=== PATIENT | female | born 1945 | race Caucasian/White ===

== ENCOUNTER 2023-01-06 09:20 | Inpatient (IN) | payer OTHER, SELFPAY ==
[2023-01-06] VITALS (20 sets, daily range): BP systolic 100–156; BP diastolic 50–80; PULSE 84–114; RESP 16–20; TEMP 36.4–39.1; O2SAT 92–96; BMI 32.6
--- NOTE | ~2023-01-06 | CT_ITS ---
EXAMINATION: CT HEAD WITHOUT CONTRAST (STROKE PROTOCOL) CLINICAL INFORMATION: Stroke protocol. Slurred speech. Right facial droop. Altered mental status. COMPARISON: CT head dated 02/28/2012. TECHNIQUE: Contiguous axial imaging was performed from the skull base to vertex without intravenous administration of contrast. This CT examination was performed using dose optimization techniques as appropriate, variously including the following: *Automated exposure control *Adjustment of mA and/or kV according to patient size (this includes techniques or standardized protocols for targeted exams where dose is matched to indication/reason for exam; i.e. extremities or head) *Use of iterative reconstruction technique DLP: 739.80 mGy-cm FINDINGS: There is no evidence of acute intracranial hemorrhage or territorial infarction. No abnormal mass-effect or midline shift is seen. Hurt to white matter differentiation is well preserved. No extra-axial fluid collections are identified. The ventricles and sulci are commensurately enlarged, similar to the previous exam. There is prominent periventricular and deep white matter low-attenuation seen, consistent with ischemic small vessel disease. The osseous structures and soft tissues are normal. There is partial opacification of both maxillary sinuses and partial density in the left frontal sinus and some of the left ethmoid air cells, consistent with chronic sinusitis. The mastoid air cells and visualized portions of the remainder of the paranasal sinuses are well-aerated. CT/CT head for stroke IMPRESSION: * No acute intracranial pathology. * Prominent findings of ischemic small vessel disease. * Chronic sinus disease. This critical result was discussed with Dr. Enoc Spann 01/06/2023, 9 3:00 PM. It was ascertained that the content and urgency of the report was understood at the time of direct communication.
--- NOTE | ~2023-01-06 | XR_ITS ---
EXAMINATION: XR CHEST CLINICAL INFORMATION: Reason for Exam Altered mental status rule out pneumonia COMPARISON: Chest radiograph 08/15/2015 TECHNIQUE: One view of the chest FINDINGS: Lines and tubes: EKG leads overlie the patient. Right basilar opacities which may reflect infection or aspiration. No pleural effusion. No pneumothorax. Atherosclerosis of the thoracic aorta. Normal cardiac silhouette. Advanced degenerative changes of the left shoulder. XR/XR chest 1V IMPRESSION: 1. Right basilar opacities which may reflect infection or aspiration. 2. Advanced degenerative changes of the left shoulder.
--- NOTE | 2023-01-06 09:25 | ECG_ITS ---
Test Reason : STROKE Blood Pressure : / mmHG Vent. Rate : 098 BPM Atrial Rate : 098 BPM P-R Int : 166 ms QRS Dur : 080 ms QT Int : 342 ms P-R-T Axes : 046 009 032 degrees QTc Int : 436 ms Normal sinus rhythm Normal ECG When compared with ECG of 28-FEB-2012 20:27, Premature ventricular complexes are no longer Present Heart rate has increased Referred By: Darío Spann Electronically Signed By:BRENDAN REDDY MD
--- NOTE | 2023-01-06 09:28 | ED_ITS ---
HPI - Neuro Symptoms/Deficit General Chief Complaint: Stroke Stated Complaint: STROKE SYMPTOMS R SIDED WEAKNESS FACIAL DROOP Time Seen by Provider: 01/06/23 09:25 Source: EMS Mode of arrival: EMS Limitations: altered mental status History of Present Illness HPI Narrative: 78-year-old female with a history of dementia brought to emergency department by ambulance for evaluation of possible stroke. Information came from the paramedics. The patient's last well-known time was 19:30 hours when she went to bed. This morning when she woke up the family noted that she had slurred speech, right facial droop and appeared to be weak and was unable to sit up. Technology Recruiter vital signs: Blood pressure 124/79, heart rate 114, point of care glucose 120. I evaluated the patient on the inspector paper products stretcher. Patient was nonverbal but she did follow simple commands. She was able to close her eyes, cranial nerves appear to be intact, she was able to move all extremities symmetrically. Patient was transferred to a bed and sent directly to CT scan for CT scan of the brain. Related Data Allergies Allergy/AdvReac Type Severity Reaction Status Date / Time codeine [Codeine] Allergy Mild SEVERE Verified 01/06/23 09:41 VOMITING codeine Allergy Unknown rash Uncoded 01/06/23 09:41 Review of Systems 2 Review of Systems: Yes Unobtainable due to mental status PMFSH Social History Social History Advance Directives: No Advance Directives Information Provided: No Physical Exam 2 Vital Signs: Vital Signs: Last Vital Signs Temp 102.0 F H 01/06/23 10:25 Pulse 97 01/06/23 10:25 Resp 20 01/06/23 10:25 BP 144/78 H 01/06/23 10:25 Pulse Ox 96 01/06/23 10:25 O2 Del Method Room Air 01/06/23 10:25 BMI result Body Mass Index 32.6 Exam: General: Awake, nonverbal, follow simple commands, does not appear to be in distress Head: Normocephalic, atraumatic EENT: PERRL, Lids normal, right sclera is injected, no discharge noted, conjunctiva normal, nose normal , ears normal, throat without erythema or exudates Neck: Supple, no adenopathy, no trachea midline or C-spine tenderness Lung: breath sounds symmetric, no wheezing, rales or rhonchi Chest: symmetric movement, nontender Heart: regular rate and rhythm, normal S1, S2 no murmurs or rubs Abdomen: soft, non-tender, nondistended, normal bowel sounds Back: no vertebral tenderness, no CVAT Extremities: no deformities, moves all extremities symmetrically Neuro: Awake, nonverbal, follows simple commands cranial nerves intact, moves all extremities symmetrically Psych: cooperative Medications Administered Generic Name Dose Route Start Last Admin Trade Name Freq PRN Reason Stop Dose Admin Azithromycin 500 mg/ Sodium 250 mls @ 125 mls/hr 01/06/23 11:20 01/06/23 11:49 Chloride IV 01/06/23 13:19 125 mls/hr ONCE ONE Administration Discontinued Medications Generic Name Dose Route Start Last Admin Trade Name Freq PRN Reason Stop Dose Admin Ceftriaxone Sodium 1 gm/ 50 mls @ 100 mls/hr 01/06/23 09:39 01/06/23 10:51 Sodium Chloride IV 01/06/23 10:08 Infused ONCE ONE Infusion Sodium Chloride 1,779 mls @ 1,779 mls/hr 01/06/23 09:45 01/06/23 10:05 Ns IV 01/06/23 10:44 1,779 mls/hr .Q1H STA Administration Medical Decision Making Medical Decision Making MDM Narrative: 78-year-old female with history of dementia whose last well-known time was 19:30 hours when she went to bed last night who was brought to emergency department by ambulance for possible stroke alert. Family reported to the paramedics that the patient had a right facial droop, right-sided weakness and was unable to sit up. At the time of my evaluation patient does not have a perceivable facial droop, her strength seems to be symmetric. She was nonverbal but did follow simple commands. Right sclera injected but no obvious discharge. Following evaluation was ordered by me: CBC, BMP, liver panel, troponin, CK, PT/INR, PTT, magnesium, lactic acid, blood cultures x2, urinalysis obtained by straight cath 09:46 Patient was noted to have a rectal temperature of 102.4. I ordered rectal Tylenol, Redd catheter placement, 30 cc/kilogram fluid bolus , given her obesity and BMI of 32.6 ideal body weight was used to calculate the bolus. CT head without IV contrast was interpreted as no acute findings by the radiologist, radiologist compared a CT scan done 2012, microvascular changes are chronic. Differential Diagnosis Differential Diagnoses: The differential diagnosis associated with the presentation includes Differential diagnosis includes was not limited to stroke, intracranial bleed, pneumonia, urinary tract infection , electrolyte abnormality, anemia Admission/Observation Consideration of admission/observation: Escalation of care including admission/observation considered Lab Data 01/06/23 09:52 01/06/23 09:52 Labs: Lab Results 01/06/23 01/06/23 01/06/23 Range/Units 09:26 09:52 10:01 WBC 3.0 L (4.8-10.8) X10*3/uL RBC 4.48 (4.20-5.50) X10*6/uL Hgb 12.2 (12.0-16.0) g/dl Hct 38.0 (37.0-47.0) % MCV 84.8 (80.0-98.0) fL MCH 27.2 (27.0-33.0) pg MCHC 32.1 (31.0-35.0) g/dl RDW 17.8 H (11.0-16.0) % Plt Count 79 L (160-400) X10*3/uL MPV 9.2 L (9.4-12.3) fL Immature Gran % (Auto) 0.3 (0.0-0.4) % Neut % (Auto) 70.3 (45-73) % Lymph % (Auto) 16.2 L (20-40) % [place] % (Auto) 12.2 H (2-11) % Eos % (Auto) 0.7 (0-4) % Baso % (Auto) 0.3 (0-2) % Lymph # (Auto) 0.5 L (1.2-4.9) X10*3/uL [place] # (Auto) 0.4 (0.1-1.2) X10*3/uL Eos # (Auto) 0.0 (0.0-0.4) X10*3/uL Baso # (Auto) 0.0 (0.0-0.2) X10*3/uL Abs Immat Gran (auto) 0.01 (0.00-0.03) X10*3/uL Absolute Neuts (auto) 2.1 (2.0-8.3) x10*3/uL Absolute Nucleated RBC 0.000 (0.0-0.012) X10*3/uL Nucleated RBC % (auto) 0.0 (0.0-0.2) /100WBC PT 16.1 H (11.1-13.3) SEC INR 1.3 H (0.9-1.1) APTT 36.6 H (26.0-36.4) SEC Sodium 132 L (135-145) mmol/L Potassium 4.3 (3.3-5.1) mmol/L Chloride 101 (96-108) mmol/L Carbon Dioxide 22 (22-29) mmol/L Anion Gap 13 (12-20) BUN 12 (9-16) mg/dL Creatinine 0.69 (0.5-1.4) mg/dL Estim Creat Clear Calc 77.8 Estimated GFR > 60 POC Glucose 107 (60-115) mg/dL Random Glucose 109 (60-115) mg/dL Lactic Acid 1.5 (0.5-2.0) mmol/L Calcium 9.1 (8.4-10.2) mg/dL Magnesium 1.9 (1.6-2.6) mg/dL Total Bilirubin 1.0 (0.0-1.0) mg/dL Direct Bilirubin 0.3 (0.0-0.5) mg/dL AST 86 H (5-31) U/L ALT 52 H (0-31) U/L Alkaline Phosphatase 253 H (39-117) U/L Total Creatine Kinase 55 (26-140) U/L Troponin I High Sens 17.0 (<3.5-17.0) ng/L Total Protein 7.0 (6.5-8.0) g/dL Albumin 3.5 (3.5-5.0) g/dL Urine Color Yellow Urine Appearance Cloudy Urine pH 8.5 (5.0-9.0) Ur Specific [place] 1.020 (1.005-1.025) Urine Protein Trace (Neg-Trace) mg/dL Urine Glucose (UA) Negative (Negative) mg/dL Urine Ketones Negative (Negative) mg/dL Urine Blood Negative (Negative) Urine Nitrite Positive H (Negative) Ur Leukocyte Esterase Trace H (Negative) Urine RBC 0-2 (0-2) /HPF Urine WBC 6-10 H (0-5) /HPF Ur Squamous Epith Cells 0-2 (0-2) /HPF Urine Bacteria 4+ (None Seen) Hyaline Casts 0-2 (0-2) /LPF Influenza Type A (PCR) NEGATIVE (Negative) Influenza Type B (PCR) NEGATIVE (Negative) RSV RNA Qual (PCR) NEGATIVE (Negative) SARS-CoV-2 RNA (RT-PCR) POSITIVE A (Negative) Radiology Impression Discussion of test interpretation with radiology: I have reviewed the radiologist's reading. Radiologist Impression: CT head for stroke IMPRESSION: * No acute intracranial pathology. * Prominent findings of ischemic small vessel disease. * Chronic sinus disease. This critical result was discussed with Dr. Enoc Spann 01/06/2023, 9 3:00 PM. It was ascertained that the content and urgency of the report was understood at the time of direct communication. Dictated By: Meme Childs MD NIH Stroke Scale Internal: Initial- Upon Arrival Level of Consciousness: Alert Level of Consciousness Questions: Answers neither question correctly Level of Consciousness Commands: Performs both tasks correctly Best Gaze: Normal Visual: No visual loss Facial Palsy: Normal Motor Arm (Right): No drift Motor Arm (Left): No drift Motor Leg (Right): No drift Motor Leg (Left): No drift Limb Ataxia: Absent Sensory: Normal Best Language: No aphasia Dysarthia: Normal Extinction and Inattention: No abnormality Score: 2 Discharge Plan Discharge Clinical Impression: COVID-19 virus infection, Acute UTI, Weakness Pneumonia Qualifiers: Pneumonia type: due to unspecified organism Laterality: right Lung location: l ower lobe of lung Qualified Code(s): J18.9 - Pneumonia, unspecified organism
[2023-01-06 09:32] LABS: Glucose, Whole Blood 107 mg/dL (60-115)
--- NOTE | 2023-01-06 09:45 | PC.NURSE ---
alert and oriented to self only. biba d/t stroke alert - LKW 0730 last night. per pt's family - pt woke up this am and slid to the right side, slurred speech, right sided facial droop, hx dementia. pt returned from CT at this time. pt seemingly lethargic. has trouble following commands. bilateral equal/weak strength. pt has trouble formulating words - unsure if this is baseline. no facial droop noted at this time. 22gIV placed in right forearm w/o difficulty. labs drawn and sent to lab. vss aside from rectal temp/sinus tachy on classroom monitor. rectal temp of 102.4 - provider aware. POC = 107mg/dL. pt incontinent of urine during acid changer - cleaned/changed to hospital attire. temp sensing nguyễn catheter placed displaying 175ml of dark yellow urine noted immediately post output. documented in I&O section. respirations even and unlabored.
[2023-01-06 10:00] LABS: MANUAL DIFF FLAG NO
[2023-01-06 10:02] LABS: Basophils Percent Auto 0.3 % (0-2); Eosinophils Percent Auto 0.7 % (0-4); Hemoglobin 12.2 g/dl (12.0-16.0); Imm Gran Abs Auto 0.01 X10*3/uL (0.00-0.03); Imm Gran Pct Auto 0.3 % (0.0-0.4); Lymphocytes Absolute Auto 0.5 X10*3/uL (1.2-4.9); Lymphocytes Percent Auto 16.2 % (20-40); Mean Corpuscular HGB Conc 32.1 g/dl (31.0-35.0); Mean Corpuscular Hemoglobin 27.2 pg (27.0-33.0); Mean Corpuscular Volume 84.8 fL (80.0-98.0); Monocytes Absolute Auto 0.4 X10*3/uL (0.1-1.2); Monocytes Percent Auto 12.2 % (2-11); Neutrophils Absolute Auto 2.1 x10*3/uL (2.0-8.3); Neutrophils Percent Auto 70.3 % (45-73); Red Blood Count 4.48 X10*6/uL (4.20-5.50); Red Cell Distribution Width 17.8 % (11.0-16.0)
[2023-01-06] MEDS: 0.9 % Sodium Chloride 1,779 ML 1779 ML IV (10:05)
[2023-01-06 10:08] LABS: INTERNATIONAL NORM RATIO 1.3 (0.9-1.1); Prothrombin Time 16.1 SEC (11.1-13.3)
[2023-01-06 10:10] LABS: Partial Thromboplastin Time 36.6 SEC (26.0-36.4)
--- NOTE | 2023-01-06 10:10 | PC.NURSE ---
IV fluids administered per provider order. tech attempting to obtain 2nd set of cultures - will administer abx when able.
[2023-01-06 10:14] LABS: Lactic Acid 1.5 mmol/L (0.5-2.0)
[2023-01-06 10:17] LABS: Appearance Urine Cloudy; Color Urine Yellow; Glucose Urine UA Negative (Negative); Leukocyte Esterase Urine Trace (Negative); Nitrite Urine Positive (Negative); PH 8.5 (5.0-9.0); UMIC TRIGGER UACC YES; Urine Blood Negative (Negative); Urine Ketones Negative (Negative); Urine Protein Trace mg/dL (Neg-Trace)
[2023-01-06 10:18] LABS: Alanine Aminotransferase 52 U/L (0-31); Albumin Level 3.5 g/dL (3.5-5.0); Alkaline Phosphatase 253 U/L (39-117); Anion Gap 13 (12-20); Aspartate Amino Transferase 86 U/L (5-31); Bilirubin Direct 0.3 mg/dL (0.0-0.5); Blood Urea Nitrogen 12 mg/dL (9-16); Calcium 9.1 mg/dL (8.4-10.2); Carbon Dioxide 22 mmol/L (22-29); Chloride 101 mmol/L (96-108); Creatinine Clr Calc Pharmacy 77.8; Estimated Glomerular Filt Rate > 60; Glucose Random 109 mg/dL (60-115); Magnesium 1.9 mg/dL (1.6-2.6); Potassium 4.3 mmol/L (3.3-5.1); Sodium 132 mmol/L (135-145)
[2023-01-06 10:20] LABS: Bacteria Urine 4+ (None Seen); Hyaline Casts Urine 0-2 /LPF (0-2); RBC Urine 0-2 /HPF (0-2); Squamous Epithelial Cell Urine 0-2 /HPF (0-2); UACC Culture Trigger YES
[2023-01-06] MEDS: cefTRIAXone sodium 1 GM in 0.9 % Sodium Chloride 50 ML IV (10:21)
[2023-01-06 10:22] LABS: Mean Platelet Volume 9.2 fL (9.4-12.3); Platelet Count 79 X10*3/uL (160-400)
--- NOTE | 2023-01-06 10:25 | PC.NURSE ---
abx administered per provider order. sepsis protocol in place at this time. pt repositioned upright/to comfort. seems to be in no apparent distress at this time. respirations remain even and unlabored. call ricardo placed within reach.
[2023-01-06 10:28] LABS: Stroke Lab Use COMPLETE
[2023-01-06 10:49] LABS: Influenza A PCR NEGATIVE (Negative); Influenza B PCR NEGATIVE (Negative); Resp Syncy Virus RNA Qual PCR NEGATIVE (Negative); SARS COV2 PCR INHOUSE POSITIVE (Negative)
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
[2023-01-06] MEDS: Azithromycin 500 MG in 0.9 % Sodium Chloride 250 ML 125 MG IV (11:49)
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
--- NOTE | 2023-01-06 12:48 | PHA.MEDREC ---
Pharmacy Consult ? Medication Reconciliation Pharmacy has completed the medication reconciliation. spoke with family who brought in a list of her medications that she gets from [facility] ([facility]). Reviewed the list with family and verified that they give her tramadol only at night, confirmed insulin units, and confirmed quetiapine increase. They no longer give her cetirizine and use flonase as needed. They reported that she did not take any medications today.
[2023-01-06] MEDS: Sulfacetamide Sodium 10 % Oph 15 ML DRBTL 2 DROP EYE-RIGHT ×2 (13:29→17:21)
--- NOTE | 2023-01-06 13:30 | P.HPHOSP_ITS ---
History of Present Illness Date of Service: 01/06/23 Chief Complaint: Weakness 78-year-old woman presents the ER with complaints of severe weakness. According to the patient's daughter the patient lives with her was her primary caregiver. The patient has history of dementia and is unable to give much information. Apparently she tried to get her out of bed this morning and her legs were very weak and her arms as well. Normally she is able to stand pivot from her wheelchair to a no other sitting position but she was unable to do that today. Apparently this happened pretty suddenly. She had not had any fever, chills, nausea, vomiting, diarrhea, recent illness or sick contacts although the daughter did report that she had COVID about a week ago. In the ER, patient was noted to have fever, tachycardia, positive UA, consolidation noted on chest x- ray, positive COVID PCR. She was started on Rocephin, azithromycin. Given Tylenol for fever. She will be admitted for further management and treatment of sepsis secondary to UTI and COVID-19. Review of Systems 2 Review of Systems: Yes Unobtainable due to mental status [facility] Medical History (Updated 01/06/23 @ 15:17 by Wilma Geronimo NP) Dementia Depression Hyperlipidemia Diabetes mellitus Family History (Updated 01/06/23 @ 15:16 by Wilma Geronimo NP) Father Lung cancer Surgical History (Updated 01/06/23 @ 15:17 by Wilma Geronimo NP) H/O cataract removal with insertion of prosthetic lens H/O knee surgery H/O: hysterectomy Social History Alcohol intake: never Patient Tobacco Use Status: Never used Tobacco Smoked in Last 30 Days: No Use of substances other than those prescribed or required for medical reasons: No Advance Directives: Yes Advance Directives on File: Yes Advance Directives Date on File: 01/06/23 Nutrition Risks: No Nutritional Risk Meds Allergies Allergy/AdvReac Type Severity Reaction Status Date / Time codeine [Codeine] Allergy Mild SEVERE Verified 01/06/23 09:41 VOMITING codeine Allergy Unknown rash Uncoded 01/06/23 09:41 Active Medications: Current Medications Acetaminophen (Acetaminophen Supp 650 Mg Supp.Rect) 650 mg [place] Q6H PRN PRN Reason: Pain, Mild (Pain Scale 1-3) Brimonidine Tartrate (Brimonidine Tartrate 0.2% Oph 5 Ml Bottle) 1 drop EYE- BOTH BID [facility] Donepezil HCl (Donepezil Hcl 10 Mg Tablet) 10 mg PO BEDTIME [facility] Dorzolamide/Timolol (Dorzolamide/Timolo 2.23%/0.68% 10 Ml Drbtl) 1 drop EYE- BOTH BID [facility] Heparin Sodium (Porcine) (Heparin Sodium,Porcine 5,000 Unit/Ml Vial) 5,000 unit SUBCUT Q12H [facility] Ceftriaxone Sodium 1 gm/ (Sodium Chloride) 50 mls @ 100 mls/hr IV Q24H [facility] Azithromycin 500 mg/ Sodium (Chloride) 250 mls @ 125 mls/hr IV Q24H [facility] Non-Formulary Medication (Ferrous Sulfate) 325 mg PO DAILY [facility] Ondansetron HCl (Ondansetron Hcl 4 Mg/2 Ml Vial) 4 mg IVPUSH Q8H PRN PRN Reason: Nausea and Vomiting Sodium Chloride (0.9 % Sodium Chloride Flush 3 Ml Syringe) 3 ml IVFLUSH QSHIFT [facility] Sulfacetamide Sodium (Sulfacetamide Sodium 10 % Oph 15 Ml Drbtl) 2 drop EYE- RIGHT QID [facility] Stop: 01/13/23 12:59 Vitamin D (Cholecalciferol (Vitamin D3) 25 Mcg Tablet) 50 mcg PO QAM [facility] Home Medications Medication Instructions Recorded Confirmed Last Taken Type brimonidine 0.2 % eye drops 1 drp ophthalmic (eye) BID 01/06/23 01/06/23 Unknown History cholecalciferol (vitamin D3) 50 50 mcg PO QAM 01/06/23 01/06/23 Unknown History mcg (2,000 unit) tablet (Vitamin D3) donepezil 10 mg tablet 10 mg PO BEDTIME 01/06/23 01/06/23 Unknown History dorzolamide 22.3 mg-timolol 6.8 1 drp ophthalmic (eye) BID 01/06/23 01/06/23 Unknown History mg/mL eye drops ferrous sulfate 325 mg (65 mg 325 mg PO DAILY 01/06/23 01/06/23 Unknown History iron) tablet fluticasone propionate 50 1 spray intranasal DAILY PRN 01/06/23 01/06/23 Unknown History mcg/actuation nasal allergies spray,suspension gabapentin 300 mg capsule 600 mg PO TID 01/06/23 01/06/23 Unknown History insulin NPH isoph U-100 human 100 34 unit subcut DAILY 01/06/23 01/06/23 Unknown History unit/mL subcutaneous suspension (Humulin N NPH U-100 Insulin (isophane susp)) latanoprost 0.005 % eye drops 1 drp ophthalmic (eye) BEDTIME 01/06/23 01/06/23 Unknown History levothyroxine 112 mcg tablet 112 mcg PO DAILY@0600 01/06/23 01/06/23 Unknown History melatonin 10 mg capsule 10 mg PO BEDTIME 01/06/23 01/06/23 Unknown History metformin 500 mg tablet 500 mg PO BID 01/06/23 01/06/23 Unknown History netarsudil 0.02 % eye drops 1 drp ophthalmic (eye) BEDTIME 01/06/23 01/06/23 Unknown History (Rhopressa) quetiapine 150 mg tablet,extended 150 mg PO BEDTIME 01/06/23 01/06/23 Unknown History release 24 hr quetiapine 25 mg tablet 25 mg PO BEDTIME 01/06/23 01/06/23 Unknown History risperidone 1 mg tablet 1 mg PO BID 01/06/23 01/06/23 Unknown History simvastatin 40 mg tablet 40 mg PO BEDTIME 01/06/23 01/06/23 Unknown History tramadol 50 mg tablet 50 mg PO BEDTIME 01/06/23 01/06/23 Unknown History venlafaxine 150 mg 150 mg PO BID 01/06/23 01/06/23 Unknown History capsule,extended release 24 hr Physical Exam 2 Vital Signs and Narrative: Vital Signs: Last Vital Signs Temp 101.7 F H 01/06/23 13:01 Pulse 104 H 01/06/23 13:01 Resp 20 01/06/23 13:01 BP 137/76 01/06/23 13:01 Pulse Ox 95 01/06/23 13:01 O2 Del Method Room Air 01/06/23 13:01 BMI result Body Mass Index 32.6 Appearing in no acute distress, legally blind head is normocephalic atraumatic eyes pupils are PERRLA sclera is anicteric mouth throat mucous membranes are intact and moist neck is supple no lymphadenopathy, no JVD noted lung sounds are clear to auscultation heart regular rate rhythm, clear S1, S2 positive bowel sounds, abdomen is soft, nontender neuro patient is alert, confused, dementia Results Labs 01/06/23 09:52 01/06/23 09:52 Labs: Laboratory Results - last 24 hr 01/06/23 01/06/23 01/06/23 09:26 09:52 10:01 MCV 84.8 MCH 27.2 MCHC 32.1 RDW 17.8 H Plt Count 79 L MPV 9.2 L Immature Gran % (Auto) 0.3 Neut % (Auto) 70.3 Lymph % (Auto) 16.2 L [place] % (Auto) 12.2 H Eos % (Auto) 0.7 Baso % (Auto) 0.3 Lymph # (Auto) 0.5 L [place] # (Auto) 0.4 Eos # (Auto) 0.0 Baso # (Auto) 0.0 Abs Immat Gran (auto) 0.01 Absolute Neuts (auto) 2.1 Absolute Nucleated RBC 0.000 Nucleated RBC % (auto) 0.0 PT 16.1 H INR 1.3 H APTT 36.6 H Anion Gap 13 Estim Creat Clear Calc 77.8 Estimated GFR > 60 POC Glucose 107 Random Glucose 109 Lactic Acid 1.5 Calcium 9.1 Magnesium 1.9 Total Bilirubin 1.0 Direct Bilirubin 0.3 AST 86 H ALT 52 H Alkaline Phosphatase 253 H Total Creatine Kinase 55 Total Protein 7.0 Albumin 3.5 Urine Color Yellow Urine Appearance Cloudy Urine pH 8.5 Ur Specific [place] 1.020 Urine Protein Trace Urine Glucose (UA) Negative Urine Ketones Negative Urine Blood Negative Urine Nitrite Positive H Ur Leukocyte Esterase Trace H Urine RBC 0-2 Urine WBC 6-10 H Ur Squamous Epith Cells 0-2 Urine Bacteria 4+ Hyaline Casts 0-2 Influenza Type A (PCR) NEGATIVE Influenza Type B (PCR) NEGATIVE RSV RNA Qual (PCR) NEGATIVE SARS-CoV-2 RNA (RT-PCR) POSITIVE A Imaging Radiologist's Impressions: Impressions Head CT 01/06/23 09:33 IMPRESSION: * No acute intracranial pathology. * Prominent findings of ischemic small vessel disease. * Chronic sinus disease. This critical result was discussed with Dr. Enoc Spann 01/06/2023, 9 3:00 PM. It was ascertained that the content and urgency of the report was understood at the time of direct communication. Chest X-Ray 01/06/23 11:15 IMPRESSION: 1. Right basilar opacities which may reflect infection or aspiration. 2. Advanced degenerative changes of the left shoulder. Assessment and Plan (1) Weakness: Status: Acute (2) Pneumonia: Qualifiers: Laterality: right Lung location: lower lobe of lung Pneumonia type: d ue to unspecified organism Qualified Code(s): J18.9 - Pneumonia, unspecified organism Status: Acute Plan 78-year-old woman with history of dementia admitted with sepsis secondary to viral COVID and UTI. Lives with her was her primary caregiver. Sepsis Fever, tachycardia, UTI and COVID Follow-up blood and urine culture COVID-19 No noted hypoxia, will hold off on steroids for now Does appear to have a consolidation, will treat with Rocephin and azithromycin Supplemental oxygen as needed UTI Positive UA Follow urine culture Treat with Rocephin Transaminitis Mild Likely secondary to viral COVID Hyponatremia Mild Likely secondary to hypovolemia Monitor BMP Thrombocytopenia Likely secondary to viral COVID Monitor CBC Diabetes mellitus type 2 Sliding scale, ADA diet Depression Continue home medications Hypothyroidism Continue levothyroxine Hyperlipidemia Continue statin Dementia Continue Aricept Patient is mostly stand and pivot May need a sitter in the room at night for according to the daughter DVT prophylaxis with heparin Full code Patient required 2 inpatient midnights for treatment of sepsis secondary to UTI and viral COVID requiring close monitoring and this cannot take place in less acute setting Quality Stroke Does the patient have a stroke diagnosis?: No VTE Prior VTE?: No VTE Risk Level:: Medical - moderate - high VTE Device Contraindication: Treatment Not Indicated VTE Drug Contraindication: N/A - Med Ordered
--- NOTE | 2023-01-06 13:31 | PC.NURSE ---
pharmacy called d/t medication not being available in pyxis. will administer when able.
[2023-01-06] MEDS: Acetaminophen Supp 650 MG SUPP.RECT PR (13:36)
--- NOTE | 2023-01-06 13:38 | PC.NURSE ---
suppository administered for fever - will assess shortly.
[2023-01-06] MEDS: Cholecalciferol (Vitamin D3) 25 MCG TABLET 50 MCG PO (13:52)
[2023-01-06] MEDS: Heparin Sodium,Porcine 5,000 UNIT/ML VIAL 5000 UNIT SUBCUT (13:52)
--- NOTE | 2023-01-06 13:58 | PC.NURSE ---
pt cleaned/repositioned to comfort by techs. pillows positioned to promote comfort/decrease pain in right leg. medications administered per provider order. this RN messaged admitting provider about requesting pain medication. family bedside. call ricardo placed within reach.
[2023-01-06] MEDS: Morphine Sulfate 2 MG/ML CARTRIDGE IVPUSH (14:28)
--- NOTE | 2023-01-06 14:32 | PC.NURSE ---
pt medicated per provider order. will reassess pain level shortly. pt and pt's daughter speaking w/ admitting provider at this time.
[2023-01-06] MEDS: Gabapentin 300 MG CAPSULE 600 MG PO ×2 (15:55→20:39)
[2023-01-06] MEDS: 0.9 % Sodium Chloride Flush 3 ML SYRINGE IVFLUSH (15:56)
--- NOTE | 2023-01-06 16:01 | PC.NURSE ---
pt medicated per provider order. family members brought pt's medications in from home. forms filled out/sent to pharmacy.
[2023-01-06] MEDS: Acetaminophen 325 MG TABLET 650 MG PO (17:29)
--- NOTE | 2023-01-06 17:29 | PC.NURSE ---
medications administered per provider order. prn Tylenol administered for fever - will reassess effects shortly. family bedside. pt continues to wait admission. pt remains in no apparent distress. respirations even and unlabored. call ricardo placed within reach.
[2023-01-06 20:28] LABS: Glucose, Whole Blood 118 mg/dL (60-115)
[2023-01-06] MEDS: Venlafaxine HCl ER 150 MG CAP.ER.24H PO (20:39)
[2023-01-06] MEDS: Donepezil HCl 10 MG TABLET PO (20:39)
[2023-01-06] MEDS: Atorvastatin Calcium 20 MG TABLET PO (20:39)
[2023-01-06] MEDS: QUEtiapine Fumarate 25 MG TABLET PO (20:39)
[2023-01-06] MEDS: risperiDONE 1 MG TABLET PO (20:39)
[2023-01-06] MEDS: traMADoL HCL 50 MG TABLET PO (20:39)
[2023-01-06] MEDS: Melatonin 3 MG TABLET 9 MG PO (20:40)
[2023-01-06 21:57] LABS: Prothrombin Time Whole Bld POC 14.6 sec (11.1-13.5); ~PT, ~INR - Anti Coag Clinic 1.2 (0.9-1.1)
[2023-01-07] VITALS (8 sets, daily range): BP systolic 112–149; BP diastolic 57–67; PULSE 71–82; RESP 14–20; TEMP 36.9–38.1; O2SAT 91–94
[2023-01-07] MEDS: 0.9 % Sodium Chloride Flush 3 ML SYRINGE IVFLUSH ×4 (00:38→22:14)
[2023-01-07] MEDS: Heparin Sodium,Porcine 5,000 UNIT/ML VIAL 5000 UNIT SUBCUT ×2 (00:38→12:35)
--- NOTE | 2023-01-07 03:24 | HO.SKINPHOTO ---
Wound to left ankle noted upon admission assessment. Small amount of yellow discharged noted. Foam dressing applied.
[2023-01-07] MEDS: Acetaminophen 325 MG TABLET 650 MG PO (04:03)
--- NOTE | 2023-01-07 04:06 | PC.NURSE ---
Redness noted underneath left abdominal fold. MD notified, nystatin powder ordered.
[2023-01-07] MEDS: Levothyroxine Sodium 112 MCG TABLET PO (05:20)
[2023-01-07 07:21] LABS: Hematocrit 32.1 % (37.0-47.0); Hemoglobin 10.3 g/dl (12.0-16.0); Lymphocytes Absolute Auto 0.5 X10*3/uL (1.2-4.9); Lymphocytes Percent Auto 26.7 % (20-40); MANUAL DIFF FLAG SCAN; Mean Corpuscular HGB Conc 32.1 g/dl (31.0-35.0); Mean Corpuscular Hemoglobin 27.1 pg (27.0-33.0); Mean Corpuscular Volume 84.5 fL (80.0-98.0); Mean Platelet Volume 9.8 fL (9.4-12.3); Monocytes Absolute Auto 0.4 X10*3/uL (0.1-1.2); Neutrophils Percent Auto 53.3 % (45-73); Red Cell Distribution Width 18.1 % (11.0-16.0); SCAN SMEAR FLAG 1
[2023-01-07 07:22] LABS: Platelet Count 66 X10*3/uL (160-400); White Blood Count 1.8 X10*3/uL (4.8-10.8)
[2023-01-07 07:31] LABS: Alanine Aminotransferase 54 U/L (0-31); Alkaline Phosphatase 217 U/L (39-117); Anion Gap 12 (12-20); Aspartate Amino Transferase 87 U/L (5-31); Bilirubin Total 0.6 mg/dL (0.0-1.0); Blood Urea Nitrogen 13 mg/dL (9-16); Calcium 8.4 mg/dL (8.4-10.2); Carbon Dioxide 22 mmol/L (22-29); Chloride 105 mmol/L (96-108); Creatinine Clr Calc Pharmacy 76.7; Estimated Glomerular Filt Rate > 60; Glucose Random 96 mg/dL (60-115); Potassium 3.5 mmol/L (3.3-5.1); Sodium 135 mmol/L (135-145); Total Protein 5.8 g/dL (6.5-8.0)
[2023-01-07 07:39] LABS: SLIDE REVIEW VERIFIED
[2023-01-07 08:23] LABS: Glucose, Whole Blood 89 mg/dL (60-115)
--- NOTE | 2023-01-07 09:09 | HO.PM.IMPN ---
Subjective Subjective Date of Service: 01/07/23 Review of Systems Follow-up sepsis secondary to COVID-19 and UTI History of dementia, able to give minimal history Patient is sitting up in bed, eating breakfast with assistance Physical Exam Vital Signs: Vital Signs: Last Vital Signs Temp 98.4 F 01/07/23 07:41 Pulse 80 01/07/23 07:41 Resp 16 01/07/23 07:41 BP 116/59 L 01/07/23 07:41 Pulse Ox 94 01/07/23 07:41 O2 Del Method Room Air 01/07/23 07:41 BMI result Body Mass Index 32.6 Appearing in no acute distress lung sounds are clear to auscultation heart regular rate rhythm, clear S1, S2 positive bowel sounds, abdomen is soft, nontender neuro patient is alert, confused Objective Data Active Medications Acetaminophen (Acetaminophen 325 Mg Tablet) 650 mg PO Q4H PRN PRN Reason: Fever Last Admin: 01/07/23 04:03 Dose: 650 mg Documented By: RANJANA Atorvastatin Calcium (Atorvastatin Calcium 20 Mg Tablet) 20 mg PO BEDTIME [facility] Last Admin: 01/06/23 20:39 Dose: 20 mg Documented By: RANJANA Brimonidine Tartrate (Brimonidine Tartrate 0.2% Oph 5 Ml Bottle) 1 drop EYE-BOTH BID [facility] Last Admin: 01/06/23 23:31 Dose: Not Given Documented By: RANJANA Non-Admin Reason: Patient Asleep Donepezil HCl (Donepezil Hcl 10 Mg Tablet) 10 mg PO BEDTIME [facility] Last Admin: 01/06/23 20:39 Dose: 10 mg Documented By: RANJANA Dorzolamide/Timolol (Dorzolamide/Timolo 2.23%/0.68% 10 Ml Drbtl) 1 drop EYE-BOTH BID [facility] Last Admin: 01/06/23 23:31 Dose: Not Given Documented By: RANJANA Non-Admin Reason: Patient Asleep Ferrous Sulfate (Ferrous Sulfate 324 Mg Tablet.Dr) 324 mg PO DAILY [facility] Fluticasone Propionate (Fluticasone Propionate Nasal 16 Gm [place]) 1 spray NOSTRIL-B DAILY PRN PRN Reason: allergies Gabapentin (Gabapentin 300 Mg Capsule) 600 mg PO TID [facility] Last Admin: 01/06/23 20:39 Dose: 600 mg Documented By: RANJANA Heparin Sodium (Porcine) (Heparin Sodium,Porcine 5,000 Unit/Ml Vial) 5,000 unit SUBCUT Q12H [facility] Last Admin: 01/07/23 00:38 Dose: 5,000 unit Documented By: RANJANA Ceftriaxone Sodium 1 gm/ (Sodium Chloride) 50 mls @ 100 mls/hr IV Q24H [facility] Azithromycin 500 mg/ Sodium (Chloride) 250 mls @ 125 mls/hr IV Q24H [facility] Latanoprost (Latanoprost 0.005 % Ophth [place] 2.5 Ml Drops) 1 drop EYE-BOTH BEDTIME [facility] Last Admin: 01/06/23 23:31 Dose: Not Given Documented By: RANJANA Non-Admin Reason: Patient Asleep Levothyroxine Sodium (Levothyroxine Sodium 112 Mcg Tablet) 112 mcg PO DAILY@0600 [facility] Last Admin: 01/07/23 05:20 Dose: 112 mcg Documented By: RANJANA Melatonin (Melatonin 3 Mg Tablet) 9 mg PO BEDTIME [facility] Last Admin: 01/06/23 20:40 Dose: 9 mg Documented By: RANJANA Morphine Sulfate (Morphine Sulfate 2 Mg/Ml Cartridge) 2 mg IVPUSH Q4H PRN; Protocol PRN Reason: Pain, Moderate(Pain Scale 4-6) Last Admin: 01/06/23 14:28 Dose: 2 mg Documented By: JAMIE Non-Formulary Medication (Netarsudil [Rhopressa]) 1 drop EYE-BOTH BEDTIME [facility] Non-Formulary Medication (Quetiapine) 150 mg PO BEDTIME [facility] Nystatin (Nystatin Powder 15 Gm Bottle) 1 appl TOPICAL BID [facility]; Protocol Ondansetron HCl (Ondansetron Hcl 4 Mg/2 Ml Vial) 4 mg IVPUSH Q8H PRN PRN Reason: Nausea and Vomiting Oxycodone HCl (Oxycodone Hcl Immed Release 5 Mg Tablet) 5 mg PO Q6H PRN PRN Reason: Pain, Moderate(Pain Scale 4-6) Quetiapine Fumarate (Quetiapine Fumarate 25 Mg Tablet) 25 mg PO BEDTIME [facility] Last Admin: 01/06/23 20:39 Dose: 25 mg Documented By: RANJANA Risperidone (Risperidone 1 Mg Tablet) 1 mg PO BID [facility] Last Admin: 01/06/23 20:39 Dose: 1 mg Documented By: RANJANA Sodium Chloride (0.9 % Sodium Chloride Flush 3 Ml Syringe) 3 ml IVFLUSH QSHIFT [facility] Last Admin: 01/07/23 00:38 Dose: 3 ml Documented By: RANJANA Sulfacetamide Sodium (Sulfacetamide Sodium 10 % Oph 15 Ml Drbtl) 2 drop EYE-RIGHT QID [facility] Stop: 01/13/23 12:59 Last Admin: 01/06/23 23:31 Dose: Not Given Documented By: RANJANA Non-Admin Reason: Patient Asleep Tramadol HCl (Tramadol Hcl 50 Mg Tablet) 50 mg PO BEDTIME [facility] Last Admin: 01/06/23 20:39 Dose: 50 mg Documented By: RANJANA Venlafaxine HCl (Venlafaxine Hcl Er 150 Mg Cap.Er.24h) 150 mg PO BID [facility] Last Admin: 01/06/23 20:39 Dose: 150 mg Documented By: RANJANA Vitamin D (Cholecalciferol (Vitamin D3) 25 Mcg Tablet) 50 mcg PO DAILY [facility] Last Admin: 01/06/23 13:52 Dose: 50 mcg Documented By: JAMIE Labs 01/07/23 06:08 01/07/23 06:08 Labs: Laboratory Results - last 24 hr 01/06/23 01/06/23 01/06/23 09:26 09:27 09:52 MCV 84.8 MCH 27.2 MCHC 32.1 RDW 17.8 H Plt Count 79 L MPV 9.2 L Immature Gran % (Auto) 0.3 Neut % (Auto) 70.3 Lymph % (Auto) 16.2 L [place] % (Auto) 12.2 H Eos % (Auto) 0.7 Baso % (Auto) 0.3 Lymph # (Auto) 0.5 L [place] # (Auto) 0.4 Eos # (Auto) 0.0 Baso # (Auto) 0.0 Abs Immat Gran (auto) 0.01 Absolute Neuts (auto) 2.1 Absolute Nucleated RBC 0.000 Nucleated RBC % (auto) 0.0 Smear Tech's Comments PT 16.1 H Whole Blood PT 14.6 H INR 1.3 H Whole Blood INR 1.2 H APTT 36.6 H Anion Gap 13 Estim Creat Clear Calc 77.8 Estimated GFR > 60 POC Glucose 107 Random Glucose 109 Lactic Acid 1.5 Calcium 9.1 Magnesium 1.9 Total Bilirubin 1.0 Direct Bilirubin 0.3 AST 86 H ALT 52 H Alkaline Phosphatase 253 H Total Creatine Kinase 55 Total Protein 7.0 Albumin 3.5 Urine Color Urine Appearance Urine pH Ur Specific [place] Urine Protein Urine Glucose (UA) Urine Ketones Urine Blood Urine Nitrite Ur Leukocyte Esterase Urine RBC Urine WBC Ur Squamous Epith Cells Urine Bacteria Hyaline Casts Influenza Type A (PCR) NEGATIVE Influenza Type B (PCR) NEGATIVE RSV RNA Qual (PCR) NEGATIVE SARS-CoV-2 RNA (RT-PCR) POSITIVE A 01/06/23 01/06/23 01/07/23 10:01 20:20 06:08 MCV 84.5 MCH 27.1 MCHC 32.1 RDW 18.1 H Plt Count 66 L MPV 9.8 Immature Gran % (Auto) 0.0 Neut % (Auto) 53.3 Lymph % (Auto) 26.7 [place] % (Auto) 20.0 H Eos % (Auto) 0.0 Baso % (Auto) 0.0 Lymph # (Auto) 0.5 L [place] # (Auto) 0.4 Eos # (Auto) 0.0 Baso # (Auto) 0.0 Abs Immat Gran (auto) 0.00 Absolute Neuts (auto) 1.0 L Absolute Nucleated RBC 0.000 Nucleated RBC % (auto) 0.0 Smear Tech's Comments VERIFIED PT Whole Blood PT INR Whole Blood INR APTT Anion Gap 12 Estim Creat Clear Calc 76.7 Estimated GFR > 60 POC Glucose 118 H Random Glucose 96 Lactic Acid Calcium 8.4 D Magnesium Total Bilirubin 0.6 Direct Bilirubin AST 87 H ALT 54 H Alkaline Phosphatase 217 H Total Creatine Kinase Total Protein 5.8 L Albumin 3.0 L Urine Color Yellow Urine Appearance Cloudy Urine pH 8.5 Ur Specific [place] 1.020 Urine Protein Trace Urine Glucose (UA) Negative Urine Ketones Negative Urine Blood Negative Urine Nitrite Positive H Ur Leukocyte Esterase Trace H Urine RBC 0-2 Urine WBC 6-10 H Ur Squamous Epith Cells 0-2 Urine Bacteria 4+ Hyaline Casts 0-2 Influenza Type A (PCR) Influenza Type B (PCR) RSV RNA Qual (PCR) SARS-CoV-2 RNA (RT-PCR) 01/07/23 08:09 MCV MCH MCHC RDW Plt Count MPV Immature Gran % (Auto) Neut % (Auto) Lymph % (Auto) [place] % (Auto) Eos % (Auto) Baso % (Auto) Lymph # (Auto) [place] # (Auto) Eos # (Auto) Baso # (Auto) Abs Immat Gran (auto) Absolute Neuts (auto) Absolute Nucleated RBC Nucleated RBC % (auto) Smear Tech's Comments PT Whole Blood PT INR Whole Blood INR APTT Anion Gap Estim Creat Clear Calc Estimated GFR POC Glucose 89 Random Glucose Lactic Acid Calcium Magnesium Total Bilirubin Direct Bilirubin AST ALT Alkaline Phosphatase Total Creatine Kinase Total Protein Albumin Urine Color Urine Appearance Urine pH Ur Specific [place] Urine Protein Urine Glucose (UA) Urine Ketones Urine Blood Urine Nitrite Ur Leukocyte Esterase Urine RBC Urine WBC Ur Squamous Epith Cells Urine Bacteria Hyaline Casts Influenza Type A (PCR) Influenza Type B (PCR) RSV RNA Qual (PCR) SARS-CoV-2 RNA (RT-PCR) Assessment and Plan (1) Weakness: Status: Acute Plan 78-year-old woman with history of dementia admitted with sepsis secondary to viral COVID and UTI. Lives with her was her primary caregiver. pancytopenia WBC 1.8, platelets 66 Likely secondary to viral COVID Monitor closely Sepsis. Sepsis resolved Fever, tachycardia, UTI and COVID Follow-up blood and urine culture COVID-19 No noted hypoxia, will hold off on steroids for now Does appear to have a consolidation, continue Rocephin and azithromycin Supplemental oxygen as needed UTI Positive UA Urine culture pending Continue Rocephin Transaminitis Mild Likely secondary to viral COVID Trend Hyponatremia. Resolved Mild Likely secondary to hypovolemia Monitor BMP Diabetes mellitus type 2 Sliding scale, ADA diet Depression Continue home medications Hypothyroidism Continue levothyroxine Hyperlipidemia Continue statin Dementia Continue Aricept Patient is mostly stand and pivot May need a sitter in the room at night for according to the daughter DVT prophylaxis with heparin Attending Dr. Sorto Full code continue hospitalization for treatment of sepsis secondary to UTI and viral COVID requiring close monitoring and this cannot take place in less acute setting Quality Stroke Does the patient have a stroke diagnosis?: No VTE Prior VTE?: No VTE Risk Level:: Medical - moderate - high VTE Device Contraindication: Treatment Not Indicated VTE Drug Contraindication: N/A - Med Ordered
[2023-01-07] MEDS: Venlafaxine HCl ER 150 MG CAP.ER.24H PO ×2 (09:31→21:56)
[2023-01-07] MEDS: Gabapentin 300 MG CAPSULE 600 MG PO ×3 (09:32→21:57)
[2023-01-07] MEDS: Cholecalciferol (Vitamin D3) 25 MCG TABLET 50 MCG PO (09:32)
[2023-01-07] MEDS: Ferrous Sulfate 324 MG TABLET.DR PO (09:32)
[2023-01-07] MEDS: risperiDONE 1 MG TABLET PO ×2 (09:37→21:56)
[2023-01-07] MEDS: Brimonidine Tartrate 0.2% Oph 5 ML BOTTLE 1 DROP EYE-BOTH ×2 (10:47→21:58)
[2023-01-07] MEDS: Nystatin Powder 15 GM BOTTLE 1 APPL TOPICAL ×2 (10:47→22:14)
[2023-01-07] MEDS: Dorzolamide/Timolo 2.23%/0.68% 10 ML DRBTL 1 DROP EYE-BOTH ×2 (10:48→21:58)
[2023-01-07] MEDS: Sulfacetamide Sodium 10 % Oph 15 ML DRBTL 2 DROP EYE-RIGHT ×4 (10:48→21:58)
[2023-01-07] MEDS: cefTRIAXone sodium 1 GM in 0.9 % Sodium Chloride 50 ML IV (10:57)
[2023-01-07] MEDS: guaiFENesin LA 600 MG TAB.ER.12H PO ×2 (12:24→21:56)
[2023-01-07] MEDS: Azithromycin 500 MG in 0.9 % Sodium Chloride 250 ML 125 MG IV (12:28)
--- NOTE | 2023-01-07 13:09 | MHC.CM.PN ---
IMM 01/07/23 discussed and signed by HCP / Dtr Zohra. Pt lives at home and is cared for by her and receives services from [facility]. Her PCP is the providers at [facility], she attends the day program there and receives her personal care there. Plan is return to home or if STR is needed, to go to a rehab that [facility] is contracted with. CM will follow and assist with DC planning.
[2023-01-07] MEDS: Atorvastatin Calcium 20 MG TABLET PO (21:56)
[2023-01-07] MEDS: Donepezil HCl 10 MG TABLET PO (21:56)
[2023-01-07] MEDS: traMADoL HCL 50 MG TABLET PO (21:56)
[2023-01-07] MEDS: QUEtiapine Fumarate 25 MG TABLET PO (21:57)
[2023-01-07] MEDS: Latanoprost 0.005 % Ophth Sol 2.5 ML DROPS 1 DROP EYE-BOTH (21:58)
[2023-01-07] MEDS: Melatonin 3 MG TABLET 9 MG PO (22:02)
[2023-01-08] VITALS: BP 112/56; PULSE 75; RESP 20; TEMP 37.6; O2SAT 90
[2023-01-08] MEDS: Heparin Sodium,Porcine 5,000 UNIT/ML VIAL 5000 UNIT SUBCUT ×2 (00:57→12:52)
[2023-01-08] MEDS: Acetaminophen 325 MG TABLET 650 MG PO (00:57)
[2023-01-08 04:00] VITALS: BP 118/59; PULSE 72; RESP 18; TEMP 36.7; O2SAT 93
[2023-01-08] MEDS: Levothyroxine Sodium 112 MCG TABLET PO (05:33)
[2023-01-08 07:47] LABS: Basophils Percent Auto 0.5 % (0-2); Eosinophils Percent Auto 2.1 % (0-4); Hematocrit 34.7 % (37.0-47.0); Hemoglobin 11.2 g/dl (12.0-16.0); Imm Gran Abs Auto 0.01 X10*3/uL (0.00-0.03); Imm Gran Pct Auto 0.5 % (0.0-0.4); Lymphocytes Percent Auto 50.3 % (20-40); MANUAL DIFF FLAG SCAN; Mean Corpuscular HGB Conc 32.3 g/dl (31.0-35.0); Mean Corpuscular Hemoglobin 27.5 pg (27.0-33.0); Mean Platelet Volume 9.3 fL (9.4-12.3); Monocytes Absolute Auto 0.3 X10*3/uL (0.1-1.2); Monocytes Percent Auto 16.9 % (2-11); Neutrophils Absolute Auto 0.6 x10*3/uL (2.0-8.3); Neutrophils Percent Auto 29.7 % (45-73); Red Blood Count 4.08 X10*6/uL (4.20-5.50); Red Cell Distribution Width 17.9 % (11.0-16.0); SCAN SMEAR FLAG 1
[2023-01-08 07:49] LABS: Platelet Count 74 X10*3/uL (160-400)
[2023-01-08 08:00] VITALS: BP 132/76; PULSE 60; RESP 16; TEMP 37.3; O2SAT 94
[2023-01-08 08:04] LABS: Anion Gap 10 (12-20); Blood Urea Nitrogen 11 mg/dL (9-16); Calcium 8.5 mg/dL (8.4-10.2); Carbon Dioxide 26 mmol/L (22-29); Chloride 109 mmol/L (96-108); Creatinine Clr Calc Pharmacy 74.5; Estimated Glomerular Filt Rate > 60; Glucose Random 100 mg/dL (60-115); Potassium 3.5 mmol/L (3.3-5.1); Sodium 141 mmol/L (135-145)
[2023-01-08 08:05] LABS: Alanine Aminotransferase 45 U/L (0-31); Alkaline Phosphatase 245 U/L (39-117); Aspartate Amino Transferase 73 U/L (5-31); Bilirubin Direct 0.3 mg/dL (0.0-0.5); Bilirubin Total 0.4 mg/dL (0.0-1.0); Total Protein 5.9 g/dL (6.5-8.0)
[2023-01-08 08:14] LABS: SLIDE REVIEW VERIFIED
--- NOTE | 2023-01-08 09:57 | HO.PM.IMPN ---
Subjective Subjective Date of Service: 01/08/23 Review of Systems Follow-up sepsis secondary to COVID-19 and UTI History of dementia, able to give minimal history Patient is sitting up in bed, eating breakfast with assistance Physical Exam Vital Signs: Vital Signs: Last Vital Signs Temp 99.1 F 01/08/23 08:00 Pulse 60 01/08/23 08:00 Resp 16 01/08/23 08:00 BP 132/76 01/08/23 08:00 Pulse Ox 94 01/08/23 08:00 O2 Del Method Room Air 01/08/23 08:00 BMI result Body Mass Index 32.6 Appearing in no acute distress lung sounds are clear to auscultation heart regular rate rhythm, clear S1, S2 positive bowel sounds, abdomen is soft, nontender neuro patient is alert, hx of dementia Objective Data Active Medications Acetaminophen (Acetaminophen 325 Mg Tablet) 650 mg PO Q4H PRN PRN Reason: Fever Last Admin: 01/08/23 00:57 Dose: 650 mg Documented By: RANJANA Atorvastatin Calcium (Atorvastatin Calcium 20 Mg Tablet) 20 mg PO BEDTIME [facility] Last Admin: 01/07/23 21:56 Dose: 20 mg Documented By: RANJANA Brimonidine Tartrate (Brimonidine Tartrate 0.2% Oph 5 Ml Bottle) 1 drop EYE-BOTH BID [facility] Last Admin: 01/07/23 21:58 Dose: 1 drop Documented By: RANJANA Donepezil HCl (Donepezil Hcl 10 Mg Tablet) 10 mg PO BEDTIME [facility] Last Admin: 01/07/23 21:56 Dose: 10 mg Documented By: RANJANA Dorzolamide/Timolol (Dorzolamide/Timolo 2.23%/0.68% 10 Ml Drbtl) 1 drop EYE-BOTH BID [facility] Last Admin: 01/07/23 21:58 Dose: 1 drop Documented By: RANJANA Ferrous Sulfate (Ferrous Sulfate 324 Mg Tablet.Dr) 324 mg PO DAILY [facility] Last Admin: 01/07/23 09:32 Dose: 324 mg Documented By: DEEPIKA Fluticasone Propionate (Fluticasone Propionate Nasal 16 Gm [place]) 1 spray NOSTRIL-B DAILY PRN PRN Reason: allergies Gabapentin (Gabapentin 300 Mg Capsule) 600 mg PO TID [facility] Last Admin: 01/07/23 21:57 Dose: 600 mg Documented By: RANJANA Guaifenesin (Guaifenesin [place] 600 Mg Tab.Er.12h) 600 mg PO BID [facility] Last Admin: 01/07/23 21:56 Dose: 600 mg Documented By: RANJANA Heparin Sodium (Porcine) (Heparin Sodium,Porcine 5,000 Unit/Ml Vial) 5,000 unit SUBCUT Q12H [facility] Last Admin: 01/08/23 00:57 Dose: 5,000 unit Documented By: RANJANA Ceftriaxone Sodium 1 gm/ (Sodium Chloride) 50 mls @ 100 mls/hr IV Q24H [facility] Last Infusion: 01/07/23 12:36 Dose: Infused Documented By: DEEPIKA Azithromycin 500 mg/ Sodium (Chloride) 250 mls @ 125 mls/hr IV Q24H [facility] Last Infusion: 01/07/23 14:35 Dose: Infused Documented By: DEEPIKA Latanoprost (Latanoprost 0.005 % Ophth [place] 2.5 Ml Drops) 1 drop EYE-BOTH BEDTIME [facility] Last Admin: 01/07/23 21:58 Dose: 1 drop Documented By: RANJANA Levothyroxine Sodium (Levothyroxine Sodium 112 Mcg Tablet) 112 mcg PO DAILY@0600 [facility] Last Admin: 01/08/23 05:33 Dose: 112 mcg Documented By: RANJANA Melatonin (Melatonin 3 Mg Tablet) 9 mg PO BEDTIME [facility] Last Admin: 01/07/23 22:02 Dose: 9 mg Documented By: RANJANA Morphine Sulfate (Morphine Sulfate 2 Mg/Ml Cartridge) 2 mg IVPUSH Q4H PRN; Protocol PRN Reason: Pain, Moderate(Pain Scale 4-6) Last Admin: 01/06/23 14:28 Dose: 2 mg Documented By: JAMIE Non-Formulary Medication (Netarsudil [Rhopressa]) 1 drop EYE-BOTH BEDTIME [facility] Nystatin (Nystatin Powder 15 Gm Bottle) 1 appl TOPICAL BID [facility]; Protocol Last Admin: 01/07/23 22:14 Dose: 1 appl Documented By: RANJANA Ondansetron HCl (Ondansetron Hcl 4 Mg/2 Ml Vial) 4 mg IVPUSH Q8H PRN PRN Reason: Nausea and Vomiting Oxycodone HCl (Oxycodone Hcl Immed Release 5 Mg Tablet) 5 mg PO Q6H PRN PRN Reason: Pain, Moderate(Pain Scale 4-6) Quetiapine Fumarate (Quetiapine Fumarate 25 Mg Tablet) 25 mg PO BEDTIME [facility] Last Admin: 01/07/23 21:57 Dose: 25 mg Documented By: RANJANA Quetiapine Fumarate (Quetiapine Fumarate 25 Mg Tablet) 75 mg PO BID [facility] Risperidone (Risperidone 1 Mg Tablet) 1 mg PO BID [facility] Last Admin: 01/07/23 21:56 Dose: 1 mg Documented By: RANJANA Sodium Chloride (0.9 % Sodium Chloride Flush 3 Ml Syringe) 3 ml IVFLUSH QSHIFT [facility] Last Admin: 01/07/23 22:14 Dose: 3 ml Documented By: RANJANA Sulfacetamide Sodium (Sulfacetamide Sodium 10 % Oph 15 Ml Drbtl) 2 drop EYE-RIGHT QID [facility] Stop: 01/13/23 12:59 Last Admin: 01/07/23 21:58 Dose: 2 drop Documented By: RANJANA Tramadol HCl (Tramadol Hcl 50 Mg Tablet) 50 mg PO BEDTIME [facility] Last Admin: 01/07/23 21:56 Dose: 50 mg Documented By: RANJANA Venlafaxine HCl (Venlafaxine Hcl Er 150 Mg Cap.Er.24h) 150 mg PO BID [facility] Last Admin: 01/07/23 21:56 Dose: 150 mg Documented By: RANJANA Vitamin D (Cholecalciferol (Vitamin D3) 25 Mcg Tablet) 50 mcg PO DAILY [facility] Last Admin: 01/07/23 09:32 Dose: 50 mcg Documented By: DEEPIKA Labs 01/08/23 07:10 01/08/23 07:10 Labs: Laboratory Results - last 24 hr 01/07/23 01/08/23 06:08 07:10 MCV 85.0 MCH 27.5 MCHC 32.3 RDW 17.9 H Plt Count 74 L MPV 9.3 L Immature Gran % (Auto) 0.5 H Neut % (Auto) 29.7 L Lymph % (Auto) 50.3 H [place] % (Auto) 16.9 H Eos % (Auto) 2.1 Baso % (Auto) 0.5 Lymph # (Auto) 1.0 L [place] # (Auto) 0.3 Eos # (Auto) 0.0 Baso # (Auto) 0.0 Abs Immat Gran (auto) 0.01 Absolute Neuts (auto) 0.6 L Absolute Nucleated RBC 0.000 Nucleated RBC % (auto) 0.0 Smear Tech's Comments VERIFIED Smear Path Review Anion Gap 10 L Estim Creat Clear Calc 74.5 Estimated GFR > 60 Random Glucose 100 Calcium 8.5 Total Bilirubin 0.4 Direct Bilirubin 0.3 AST 73 H ALT 45 H Alkaline Phosphatase 245 H Total Protein 5.9 L Albumin 3.0 L Microbiology Microbiology Results: Microbiology 01/06/23 Unknown Urine Culture - Final Urine Catheterized - Redd Catheter Klebsiella oxytoca 01/06/23 10:18 Blood Culture - Preliminary Blood - Venous No growth after 24 hours. 01/06/23 09:52 Blood Culture - Preliminary Blood - Venous No growth after 24 hours. Assessment and Plan (1) Weakness: Status: Acute Plan 78-year-old woman with history of dementia admitted with sepsis secondary to viral COVID and UTI. Lives with her was her primary caregiver. pancytopenia WBC now 2.0, platelets now 74 Likely secondary to viral COVID Monitor closely Sepsis. Sepsis resolved Fever, tachycardia, UTI and COVID Follow-up blood and urine culture COVID-19 No noted hypoxia, will hold off on steroids Does appear to have a consolidation, continue Rocephin and azithromycin empirically Supplemental oxygen as needed Klebsiella UTI Positive UA Continue Rocephin Transaminitis Mild, trending down Likely secondary to viral COVID Hyponatremia. Resolved Mild Likely secondary to hypovolemia Monitor BMP Diabetes mellitus type 2 Sliding scale, ADA diet Depression Continue home medications Hypothyroidism Continue levothyroxine Hyperlipidemia Continue statin Dementia Continue Aricept Patient is mostly stand and pivot May need a sitter in the room at night for according to the daughter Disposition. Physical therapy consultation. Attempted to call daughterZohra, today but no answer DVT prophylaxis with heparin Attending Dr. Sorto Full code continue hospitalization for treatment of sepsis secondary to UTI and viral COVID requiring close monitoring and this cannot take place in less acute setting Quality Stroke Does the patient have a stroke diagnosis?: No VTE Prior VTE?: No VTE Risk Level:: Medical - moderate - high VTE Device Contraindication: Treatment Not Indicated VTE Drug Contraindication: N/A - Med Ordered
[2023-01-08] MEDS: Brimonidine Tartrate 0.2% Oph 5 ML BOTTLE 1 DROP EYE-BOTH ×2 (10:17→21:35)
[2023-01-08] MEDS: Dorzolamide/Timolo 2.23%/0.68% 10 ML DRBTL 1 DROP EYE-BOTH ×2 (10:17→21:35)
[2023-01-08] MEDS: Sulfacetamide Sodium 10 % Oph 15 ML DRBTL 2 DROP EYE-RIGHT ×4 (10:17→21:35)
[2023-01-08] MEDS: 0.9 % Sodium Chloride Flush 3 ML SYRINGE IVFLUSH ×3 (10:17→21:34)
[2023-01-08] MEDS: risperiDONE 1 MG TABLET PO ×2 (10:18→21:34)
[2023-01-08] MEDS: QUEtiapine Fumarate 25 MG TABLET 75 MG PO ×2 (10:18→21:33)
[2023-01-08] MEDS: guaiFENesin LA 600 MG TAB.ER.12H PO ×2 (10:18→21:33)
[2023-01-08] MEDS: Ferrous Sulfate 324 MG TABLET.DR PO (10:18)
[2023-01-08] MEDS: Gabapentin 300 MG CAPSULE 600 MG PO ×3 (10:18→21:33)
[2023-01-08] MEDS: Venlafaxine HCl ER 150 MG CAP.ER.24H PO ×2 (10:19→21:33)
[2023-01-08] MEDS: Cholecalciferol (Vitamin D3) 25 MCG TABLET 50 MCG PO (10:19)
[2023-01-08] MEDS: cefTRIAXone sodium 1 GM in 0.9 % Sodium Chloride 50 ML IV (10:31)
[2023-01-08] MEDS: Nystatin Powder 15 GM BOTTLE 1 APPL TOPICAL ×2 (10:33→21:35)
[2023-01-08] MEDS: Azithromycin 500 MG in 0.9 % Sodium Chloride 250 ML 125 MG IV (11:52)
[2023-01-08 11:58] VITALS: BP 114/56; PULSE 59; RESP 16; TEMP 36.5; O2SAT 93
--- NOTE | 2023-01-08 13:39 | MHC.CM.PN ---
CM spoke to nurse at [facility] program, discussed PT eval which rec. STR. Nurse informed me that 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 SUSY sent PN and PT eval to [facility] for their team to eval and determine if she can be safely assisted at home. Pt has a COVID Dx, and therefore may be difficult to find placement in STR for. Pt has been receiving services from [facility] for 6 years so they know her and her care needs well.
[2023-01-08 15:37] VITALS: BP 158/75; PULSE 57; RESP 18; TEMP 36.2; O2SAT 96
--- NOTE | 2023-01-08 17:22 | HO.SKINPHOTO ---
Location: R ankle Category: Stage: Length: Width: Depth: cm Location:L ankle Category: Stage: Length: Width: Depth: cm Location: Category: Stage: Length: Width: Depth: cm Location: Category: Stage: Length: Width: Depth: cm Location: Category: Stage: Length: Width: Depth: cm Location: Category: Stage: Length: Width: Depth: cm
[2023-01-08 19:36] VITALS: BP 122/58; PULSE 59; RESP 16; TEMP 36.6; O2SAT 94
[2023-01-08 21:01] LABS: Glucose, Whole Blood 87 mg/dL (60-115)
[2023-01-08] MEDS: Atorvastatin Calcium 20 MG TABLET PO (21:33)
[2023-01-08] MEDS: traMADoL HCL 50 MG TABLET PO (21:33)
[2023-01-08] MEDS: QUEtiapine Fumarate 25 MG TABLET PO (21:33)
[2023-01-08] MEDS: Latanoprost 0.005 % Ophth Sol 2.5 ML DROPS 1 DROP EYE-BOTH (21:34)
[2023-01-08] MEDS: Donepezil HCl 10 MG TABLET PO (21:34)
[2023-01-09] VITALS: BP 145/68; PULSE 60; RESP 20; TEMP 36.6; O2SAT 91
[2023-01-09] MEDS: Heparin Sodium,Porcine 5,000 UNIT/ML VIAL 5000 UNIT SUBCUT ×2 (00:31→12:55)
[2023-01-09 04:00] VITALS: BP 153/72; PULSE 60; RESP 18; TEMP 36.2; O2SAT 95
[2023-01-09] MEDS: Levothyroxine Sodium 112 MCG TABLET PO (05:57)
[2023-01-09 07:18] VITALS: BP 129/72; PULSE 61; RESP 18; TEMP 35.9; O2SAT 94
[2023-01-09 07:51] LABS: Glucose, Whole Blood 92 mg/dL (60-115)
[2023-01-09 09:09] LABS: Hematocrit 36.1 % (37.0-47.0); Hemoglobin 11.2 g/dl (12.0-16.0); Mean Corpuscular Hemoglobin 27.1 pg (27.0-33.0); Mean Corpuscular Volume 87.4 fL (80.0-98.0); Mean Platelet Volume 9.7 fL (9.4-12.3); Platelet Count 77 X10*3/uL (160-400); Red Blood Count 4.13 X10*6/uL (4.20-5.50); White Blood Count 1.7 X10*3/uL (4.8-10.8)
[2023-01-09] MEDS: 0.9 % Sodium Chloride Flush 3 ML SYRINGE IVFLUSH ×3 (09:38→20:35)
[2023-01-09] MEDS: Cholecalciferol (Vitamin D3) 25 MCG TABLET 50 MCG PO (09:39)
[2023-01-09] MEDS: QUEtiapine Fumarate 25 MG TABLET 75 MG PO ×2 (09:39→20:33)
[2023-01-09] MEDS: Gabapentin 300 MG CAPSULE 600 MG PO ×3 (09:39→20:34)
[2023-01-09] MEDS: Venlafaxine HCl ER 150 MG CAP.ER.24H PO ×2 (09:39→20:34)
[2023-01-09] MEDS: Ferrous Sulfate 324 MG TABLET.DR PO (09:39)
[2023-01-09] MEDS: risperiDONE 1 MG TABLET PO ×2 (09:39→20:34)
[2023-01-09] MEDS: guaiFENesin LA 600 MG TAB.ER.12H PO ×2 (09:39→20:34)
[2023-01-09] MEDS: cefTRIAXone sodium 1 GM in 0.9 % Sodium Chloride 50 ML IV (09:40)
[2023-01-09] MEDS: Sulfacetamide Sodium 10 % Oph 15 ML DRBTL 2 DROP EYE-RIGHT ×4 (09:41→20:33)
[2023-01-09] MEDS: Nystatin Powder 15 GM BOTTLE 1 APPL TOPICAL ×2 (09:41→20:33)
[2023-01-09] MEDS: Dorzolamide/Timolo 2.23%/0.68% 10 ML DRBTL 1 DROP EYE-BOTH ×2 (09:41→20:33)
[2023-01-09] MEDS: Brimonidine Tartrate 0.2% Oph 5 ML BOTTLE 1 DROP EYE-BOTH ×2 (09:41→20:33)
[2023-01-09 11:37] LABS: Glucose, Whole Blood 93 mg/dL (60-115)
[2023-01-09 11:41] VITALS: BP 102/56; PULSE 69; RESP 17; TEMP 36.4; O2SAT 94
--- NOTE | 2023-01-09 12:50 | HO.WOUND ---
Wound Consult: Initial 78yr old female admitted to [facility] on?01/06/23 13:25 - See progress notes and H&P for detailed history. Right Ankle Malleolus Etiology: ?Unstageable Pressure Injury ? POA (Present on Admission) Measurements: see charting for details Wound Bed: Black dry necrotic tissue Drainage / Odor: small amount of ellis drainage no odor noted Edges: ? irregular Saima wound: ? red blanchable desquamation No Induration, No Fluctuance Pain: Very tender to touch Goals of Treatment: ? Off Load Pressure? - Triad to aid in autolytic debridement with foam dressing Left Ankle Malleolus Etiology: ?Unstageable Pressure Injury ? POA (Present on Admission) Measurements: see charting for details Wound Bed: yellow moist slough adherent to wound bed ? Drainage / Odor: small amount of ellis drainage no odor noted Edges: ? irregular Saima wound: ? red blanchable desquamation noted, ?No Induration, No Fluctuance Pain: Very tender to touch Goals of Treatment: ? Off Load Pressure - Triad to aid in autolytic debridement with foam dressing Recommendations: 1. Turn and Reposition every 2 hours and as needed for patient comfort consider use of wedges available in the storeroom. 2. Off Load all bony prominences with use of pillows, wedges and heel boots. 3. Monitor for incontinence and moisture control. 4. Provide adequate and supplemental nutrition. 5. Order or Continue low air loss mattress. 6. Maintain blood glucose levels per Providers orders. 7. ?Bilateral Lateral Ankles? - Off Load Pressure with pillows ? Cleanse with NS, Pat dry.? Apply Triad to wound base cover with foam dressing. Do not scrub and rub triad pat and dab to remove. ?Change daily.? Do not scrub and rub triad pat and dab to remove. Re-consult wound care Nurse for wound deterioration or wound changes.
[2023-01-09] MEDS: Azithromycin 500 MG in 0.9 % Sodium Chloride 250 ML 125 MG IV (13:00)
[2023-01-09 15:01] VITALS: BP 110/54; PULSE 60; RESP 18; TEMP 36.7; O2SAT 96
--- NOTE | 2023-01-09 15:05 | P.PNIM_ITS ---
Subjective Subjective Date of Service: 01/09/23 Review of Systems Follow-up sepsis secondary to COVID-19 and UTI History of dementia, able to give minimal history Patient is sitting up in bed, eating breakfast with assistance Physical Exam 2 Vital Signs: Vital Signs: Last Vital Signs Temp 98.0 F 01/09/23 15:01 Pulse 60 01/09/23 15:01 Resp 18 01/09/23 15:01 BP 110/54 L 01/09/23 15:01 Pulse Ox 96 01/09/23 15:01 O2 Del Method Room Air 01/09/23 15:01 BMI result Body Mass Index 32.6 Appearing in no acute distress, legally blind lung sounds are clear to auscultation heart regular rate rhythm, clear S1, S2 positive bowel sounds, abdomen is soft, nontender neuro patient is alert, confused Objective Data Active Medications Acetaminophen (Acetaminophen 325 Mg Tablet) 650 mg PO Q4H PRN PRN Reason: Fever Last Admin: 01/08/23 00:57 Dose: 650 mg Documented By: RANJANA Atorvastatin Calcium (Atorvastatin Calcium 20 Mg Tablet) 20 mg PO BEDTIME [facility] Last Admin: 01/08/23 21:33 Dose: 20 mg Documented By: KEANU Brimonidine Tartrate (Brimonidine Tartrate 0.2% Oph 5 Ml Bottle) 1 drop EYE- BOTH BID [facility] Last Admin: 01/09/23 09:41 Dose: 1 drop Documented By: ERNESTINA Dextrose (Dextrose 50 % 25 Gm/50 Ml Syringe) 25 gm IVPUSH Q15M PRN; Protocol PRN Reason: per Hypoglycemia Standing Ord. Donepezil HCl (Donepezil Hcl 10 Mg Tablet) 10 mg PO BEDTIME [facility] Last Admin: 01/08/23 21:34 Dose: 10 mg Documented By: KEANU Dorzolamide/Timolol (Dorzolamide/Timolo 2.23%/0.68% 10 Ml Drbtl) 1 drop EYE- BOTH BID [facility] Last Admin: 01/09/23 09:41 Dose: 1 drop Documented By: ERNESTINA Ferrous Sulfate (Ferrous Sulfate 324 Mg Tablet.Dr) 324 mg PO DAILY [facility] Last Admin: 01/09/23 09:39 Dose: 324 mg Documented By: ERNESTINA Fluticasone Propionate (Fluticasone Propionate Nasal 16 Gm [place]) 1 spray NOSTRIL-B DAILY PRN PRN Reason: allergies Gabapentin (Gabapentin 300 Mg Capsule) 600 mg PO TID [facility] Last Admin: 01/09/23 09:39 Dose: 600 mg Documented By: ERNESTINA Glucose (Glucose Gel 15 Gm Gel..Gram.) 15 gm PO Q15M PRN; Protocol PRN Reason: per Hypoglycemia Standing Ord. Guaifenesin (Guaifenesin La 600 Mg Tab.Er.12h) 600 mg PO BID [facility] Last Admin: 01/09/23 09:39 Dose: 600 mg Documented By: ERNESTINA Heparin Sodium (Porcine) (Heparin Sodium,Porcine 5,000 Unit/Ml Vial) 5,000 unit SUBCUT Q12H [facility] Last Admin: 01/09/23 12:55 Dose: 5,000 unit Documented By: ERNESTINA Ceftriaxone Sodium 1 gm/ (Sodium Chloride) 50 mls @ 100 mls/hr IV Q24H [facility] Last Infusion: 01/09/23 10:15 Dose: Infused Documented By: ERNESTINA Azithromycin 500 mg/ Sodium (Chloride) 250 mls @ 125 mls/hr IV Q24H [facility] Last Infusion: 01/09/23 15:05 Dose: Infused Documented By: ERNESTINA Insulin Human Lispro (Insulin Lispro 100 Unit/Ml 3 Ml Vial) 0 unit SUBCUT QIDACHS [facility]; Protocol Last Admin: 01/09/23 12:02 Dose: Not Given Documented By: ERNESTINA Non-Admin Reason: No Insulin Coverage Latanoprost (Latanoprost 0.005 % Ophth [place] 2.5 Ml Drops) 1 drop EYE-BOTH BEDTIME [facility] Last Admin: 01/08/23 21:34 Dose: 1 drop Documented By: KEANU Levothyroxine Sodium (Levothyroxine Sodium 112 Mcg Tablet) 112 mcg PO DAILY@0600 [facility] Last Admin: 01/09/23 05:57 Dose: 112 mcg Documented By: KEANU Melatonin (Melatonin 3 Mg Tablet) 9 mg PO BEDTIME [facility] Last Admin: 01/08/23 21:34 Dose: Not Given Documented By: KEANU Non-Admin Reason: Patient Refused Morphine Sulfate (Morphine Sulfate 2 Mg/Ml Cartridge) 2 mg IVPUSH Q4H PRN; Protocol PRN Reason: Pain, Moderate(Pain Scale 4-6) Last Admin: 01/06/23 14:28 Dose: 2 mg Documented By: JAMIE Non-Formulary Medication (Netarsudil [Rhopressa]) 1 drop EYE-BOTH BEDTIME [facility] Nystatin (Nystatin Powder 15 Gm Bottle) 1 appl TOPICAL BID [facility]; Protocol Last Admin: 01/09/23 09:41 Dose: 1 appl Documented By: ERNESTINA Ondansetron HCl (Ondansetron Hcl 4 Mg/2 Ml Vial) 4 mg IVPUSH Q8H PRN PRN Reason: Nausea and Vomiting Oxycodone HCl (Oxycodone Hcl Immed Release 5 Mg Tablet) 5 mg PO Q6H PRN PRN Reason: Pain, Moderate(Pain Scale 4-6) Quetiapine Fumarate (Quetiapine Fumarate 25 Mg Tablet) 25 mg PO BEDTIME [facility] Last Admin: 01/08/23 21:33 Dose: 25 mg Documented By: KEANU Quetiapine Fumarate (Quetiapine Fumarate 25 Mg Tablet) 75 mg PO BID [facility] Last Admin: 01/09/23 09:39 Dose: 75 mg Documented By: ERNESTINA Risperidone (Risperidone 1 Mg Tablet) 1 mg PO BID [facility] Last Admin: 01/09/23 09:39 Dose: 1 mg Documented By: ERNESTINA Sodium Chloride (0.9 % Sodium Chloride Flush 3 Ml Syringe) 3 ml IVFLUSH QSHIFT [facility] Last Admin: 01/09/23 09:38 Dose: 3 ml Documented By: ERNESTINA Sulfacetamide Sodium (Sulfacetamide Sodium 10 % Oph 15 Ml Drbtl) 2 drop EYE- RIGHT QID [facility] Stop: 01/13/23 12:59 Last Admin: 01/09/23 12:54 Dose: 2 drop Documented By: ERNESTINA Tramadol HCl (Tramadol Hcl 50 Mg Tablet) 50 mg PO BEDTIME [facility] Last Admin: 01/08/23 21:33 Dose: 50 mg Documented By: KEANU Venlafaxine HCl (Venlafaxine Hcl Er 150 Mg Cap.Er.24h) 150 mg PO BID [facility] Last Admin: 01/09/23 09:39 Dose: 150 mg Documented By: ERNESTINA Vitamin D (Cholecalciferol (Vitamin D3) 25 Mcg Tablet) 50 mcg PO DAILY [facility] Last Admin: 01/09/23 09:39 Dose: 50 mcg Documented By: ERNESTINA Labs 01/09/23 08:59 01/08/23 07:10 Labs: Laboratory Results - last 24 hr 01/08/23 01/09/23 01/09/23 20:30 07:47 08:59 MCV 87.4 MCH 27.1 MCHC 31.0 RDW 18.0 H Plt Count 77 L MPV 9.7 Absolute Nucleated RBC 0.000 Nucleated RBC % (auto) 0.0 POC Glucose 87 92 01/09/23 11:34 MCV MCH MCHC RDW Plt Count MPV Absolute Nucleated RBC Nucleated RBC % (auto) POC Glucose 93 Microbiology Microbiology Results: Microbiology 01/06/23 10:18 Blood Culture - Preliminary Blood - Venous No growth after 48 hours. 01/06/23 09:52 Blood Culture - Preliminary Blood - Venous No growth after 48 hours. Assessment and Plan (1) Weakness: Status: Acute Plan 78-year-old woman with history of dementia admitted with sepsis secondary to viral COVID and UTI. Lives with her who is her primary caregiver. pancytopenia WBC 1.7, platelets now 74 Likely secondary to viral COVID Monitor closely Sepsis. Sepsis resolved Fever, tachycardia, UTI and COVID Follow-up blood and urine culture COVID-19 No noted hypoxia, will hold off on steroids Does appear to have a consolidation, continue Rocephin and azithromycin empirically Supplemental oxygen as needed Klebsiella UTI Positive UA Continue Rocephin Transaminitis Mild, trending down Likely secondary to viral COVID Hyponatremia. Resolved Mild Likely secondary to hypovolemia Monitor BMP Diabetes mellitus type 2 Sliding scale, ADA diet Depression Continue home medications Hypothyroidism Continue levothyroxine Hyperlipidemia Continue statin Dementia Continue Aricept Patient is mostly stand and pivot May need a sitter in the room at night for according to the daughter Disposition. Plan for STR when bed available DVT prophylaxis with heparin Attending Dr. Sorto Full code continue hospitalization for treatment of sepsis secondary to UTI and viral COVID requiring close monitoring and this cannot take place in less acute setting Quality Stroke Does the patient have a stroke diagnosis?: No VTE Prior VTE?: No VTE Risk Level:: Medical - moderate - high VTE Device Contraindication: Treatment Not Indicated VTE Drug Contraindication: N/A - Med Ordered
[2023-01-09 16:14] LABS: Glucose, Whole Blood 113 mg/dL (60-115)
[2023-01-09 19:13] VITALS: BP 154/72; PULSE 60; RESP 16; TEMP 36.6; O2SAT 96
[2023-01-09 20:26] LABS: Glucose, Whole Blood 147 mg/dL (60-115)
[2023-01-09] MEDS: QUEtiapine Fumarate 25 MG TABLET PO (20:33)
[2023-01-09] MEDS: Latanoprost 0.005 % Ophth Sol 2.5 ML DROPS 1 DROP EYE-BOTH (20:33)
[2023-01-09] MEDS: Donepezil HCl 10 MG TABLET PO (20:34)
[2023-01-09] MEDS: traMADoL HCL 50 MG TABLET PO (20:34)
[2023-01-09] MEDS: Atorvastatin Calcium 20 MG TABLET PO (20:34)
[2023-01-09] MEDS: Melatonin 3 MG TABLET 9 MG PO (20:34)
[2023-01-10] VITALS: BP 153/67; PULSE 63; RESP 16; TEMP 36.6; O2SAT 97
[2023-01-10] MEDS: Heparin Sodium,Porcine 5,000 UNIT/ML VIAL 5000 UNIT SUBCUT (00:34)
[2023-01-10 03:11] VITALS: BP 171/77; PULSE 63; RESP 16; TEMP 36.4; O2SAT 95
[2023-01-10] MEDS: Levothyroxine Sodium 112 MCG TABLET PO (05:20)
[2023-01-10 07:17] LABS: Glucose, Whole Blood 120 mg/dL (60-115)
[2023-01-10 07:41] VITALS: BP 163/72; PULSE 59; RESP 20; TEMP 36.2; O2SAT 96
[2023-01-10] MEDS: Ferrous Sulfate 324 MG TABLET.DR PO (09:44)
[2023-01-10] MEDS: Cholecalciferol (Vitamin D3) 25 MCG TABLET 50 MCG PO (09:44)
[2023-01-10] MEDS: Nystatin Powder 15 GM BOTTLE 1 APPL TOPICAL (09:44)
[2023-01-10] MEDS: QUEtiapine Fumarate 25 MG TABLET 75 MG PO (09:44)
[2023-01-10] MEDS: Gabapentin 300 MG CAPSULE 600 MG PO (09:44)
[2023-01-10] MEDS: Brimonidine Tartrate 0.2% Oph 5 ML BOTTLE 1 DROP EYE-BOTH (09:44)
[2023-01-10] MEDS: cefTRIAXone sodium 1 GM in 0.9 % Sodium Chloride 50 ML IV (09:44)
[2023-01-10] MEDS: guaiFENesin LA 600 MG TAB.ER.12H PO (09:44)
[2023-01-10] MEDS: risperiDONE 1 MG TABLET PO (09:44)
[2023-01-10] MEDS: Venlafaxine HCl ER 150 MG CAP.ER.24H PO (09:44)
[2023-01-10] MEDS: Sulfacetamide Sodium 10 % Oph 15 ML DRBTL 2 DROP EYE-RIGHT (09:45)
[2023-01-10] MEDS: Dorzolamide/Timolo 2.23%/0.68% 10 ML DRBTL 1 DROP EYE-BOTH (09:45)
[2023-01-10] MEDS: 0.9 % Sodium Chloride Flush 3 ML SYRINGE IVFLUSH (10:00)
--- NOTE | 2023-01-10 10:52 | PM.DS ---
DS: Providers Provider Date of Service: 01/10/23 Date of admission: 01/06/23 13:25 Date of discharge: 01/10/23 Primary care physician: Unknown Physician Consults: 01/08/23 13:26 Consult to Wound Care Routine Reason for consultation: bilateral ankle PI Has provider been notified: Yes Attending physician on discharge: William Sorto Discharging clinician: Radha Del Castillo DS: Diagnosis Discharge Diagnosis (1) COVID-19 virus infection: Status: Acute (2) Acute UTI: Status: Acute (3) Pneumonia: Status: Acute (4) Pancytopenia: Status: Acute (5) Transaminitis: Status: Acute DS: Summary Hospital Course Hospital Course: From H&P on the day of admission 78-year-old woman presents the ER with complaints of severe weakness. According to the patient's daughter the patient lives with her was her primary caregiver. The patient has history of dementia and is unable to give much information. Apparently she tried to get her out of bed this morning and her legs were very weak and her arms as well. Normally she is able to stand pivot from her wheelchair to a no other sitting position but she was unable to do that today. Apparently this happened pretty suddenly. She had not had any fever, chills, nausea, vomiting, diarrhea, recent illness or sick contacts although the daughter did report that she had COVID about a week ago. In the ER, patient was noted to have fever, tachycardia, positive UA, consolidation noted on chest x-ray, positive COVID PCR. She was started on Rocephin, azithromycin. Given Tylenol for fever. She will be admitted for further management and treatment of sepsis secondary to UTI and COVID-19. Patient was admitted to the hospital for sepsis And to UTI and COVID-19. Chest x-ray showed evidence of pneumonia and she was empirically treated with ceftriaxone and azithromycin. She had no hypoxia and therefore did not qualify for steroids. She has no significant respiratory symptoms. For UTI urine culture grew Klebsiella and she will be discharged to complete a course of oral antibiotics. blood cultures have remained negative to date. Fever and tachycardia have resolved. She was also noted to have transaminitis and pancytopenia, both likely secondary to viral infection with COVID-19. Recommend to check repeat CBC and repeat LFTs in the next 1-2 weeks to ensure improvement. Would hold statin for now, until repeat LFTs are checked. Mild hyponatremia resolved. For diabetes she was continued on oral metformin, her home dose of insulin was placed on hold. Her point of care sugars were monitored and she was followed with but did not require sliding scale of insulin coverage. Recommend outpatient monitoring of POC blood sugar closely, may resume home insulin as indicated. Patient was evaluated by Physical therapy who recommended short-term rehab. She will be transferred to short-term rehab in stable condition. Anticipate less than 30 day stay at [facility] Time Attestation Discharge coordination time: Greater than 30 minutes Quality: Safe Use of Opioids Does Pt have an Active Cancer Diagnosis on the Problem List?: No Quality: Stroke Does the patient have a stroke diagnosis?: No Physical Exam Vital Signs: Vital Signs: Last Vital Signs Temp 97.1 F 01/10/23 07:41 Pulse 59 01/10/23 07:41 Resp 20 01/10/23 07:41 BP 163/72 H 01/10/23 07:41 Pulse Ox 96 01/10/23 07:41 O2 Del Method Room Air 01/10/23 07:41 BMI result Body Mass Index 32.6 Const: Other: pleasantly confused General: cooperative, comfortable, no acute distress, alert and awake Nutritional Appearance: overweight Orientation/consciousness: oriented to person and oriented to place Resp: Effort & Inspection: normal respiratory effort, able to speak in complete sentences, no respiratory distress and no use of accessory muscles Cardio: Rate: regular rate GI: Inspection: No distended Palpation (GI): Soft to palpation and nontender Neuro: Other: grossly nonfocal General: oriented to person, oriented to place and moves all extremities DS: Data Data Completed and Pending Labs on day of discharge: Laboratory Results - last 24 hr 01/09/23 01/09/23 01/09/23 11:34 16:10 20:22 POC Glucose 93 113 147 H 01/10/23 07:12 POC Glucose 120 H Preliminary micro results at discharge 01/06/23 10:18 Blood Culture - Preliminary Blood - Venous No growth after 48 hours. 01/06/23 09:52 Blood Culture - Preliminary Blood - Venous No growth after 48 hours. Discharge Plan Discharge Anticipated Discharge Date/Time: 01/10/23 10:42 Patient Disposition: [facility] Discharge Diagnosis: covid 19 UTI pancytopenia sepsis Referrals: [facility] [Outside] - 1 Week Physician,Unknown J [Primary Care Provider] - 1 Week Discharge Medications: New cefuroxime axetil 250 mg tablet 250 mg PO BID 2 Days Qty: 4 0RF Continued latanoprost 0.005 % Drops 1 drp OPHTHALMIC (EYE) BEDTIME Rx Instructions: both eyes metformin 500 mg Tablet 500 mg PO BID donepezil 10 mg Tablet 10 mg PO BEDTIME venlafaxine 150 mg Capsule,Extended Release 24hr 150 mg PO BID brimonidine 0.2 % Drops 1 drp OPHTHALMIC (EYE) BID Rx Instructions: administer approximately 8 hours apart dorzolamide-timolol 22.3-6.8 mg/mL Drops 1 drp OPHTHALMIC (EYE) BID Rx Instructions: both eyes fluticasone propionate 50 mcg/actuation [place],Suspension 1 spray INTRANASAL DAILY PRN (Reason: allergies) Rx Instructions: administer into each nostril risperidone 1 mg Tablet 1 mg PO BID quetiapine 150 mg Tablet Extended Release 24 Hr 150 mg PO BEDTIME melatonin 10 mg Capsule 10 mg PO BEDTIME Rhopressa 0.02 % Drops 1 drp OPHTHALMIC (EYE) BEDTIME Rx Instructions: both eyes quetiapine 25 mg Tablet 25 mg PO BEDTIME tramadol 50 mg Tablet 50 mg PO BEDTIME ferrous sulfate 325 mg (65 mg iron) Tablet 325 mg PO DAILY gabapentin 300 mg Capsule 600 mg PO TID levothyroxine 112 mcg Tablet 112 mcg PO DAILY@0600 cholecalciferol (vitamin D3) [Vitamin D3] 50 mcg (2,000 unit) Tablet 50 mcg PO QAM Held simvastatin 40 mg Tablet 40 mg PO BEDTIME Hold Instructions: on hold for elevated LFTs Humulin N NPH U-100 Insulin 100 unit/mL Suspension 34 unit SUBCUT DAILY Hold Instructions: did not receive any insulin during hospitalization. follow sliding scale and resume as indicated Discharge Orders: Discharge Order (Routine); Ordered 01/10/23 Ordered By: Radha Del Castillo Activity on Discharge: As tolerated Stand Alone Forms: Patient Portal Discharge page Care Plan Goals: see below Health Concerns: sepsis due to pneumonia from COVID 19 and UTI pancytopenia elevated LFTs dementia Plan of Treatment: complete two more days of antibiotics for pancytopenia- likely due to viral illness - recommend repeat labs in 1-2 weeks to ensure improvement elevated LFTs - likely due to viral illness - recommend repeat labs in 1-2 weeks to ensure improvement for diabetes - continue metformin. follow POCs and cover with sliding scale if necessary. did not require insulin or sliding scale coverage during hospitalization covid 19 - no hypoxia, no steroids indicated Assessment: see discharge summary
--- NOTE | 2023-01-10 11:18 | MHC.CM.PN ---
IMM 01/10 sent to family / HCP. Pt. has been medically cleared for DC, she is going to [facility] via ambulance for STR.
== END 2023-01-10 11:11 | disposition skilled nursing facility (03) | DRG 871 ==
LOC: HO.ED 11:58 → HO.EDOVER 13:31 → HO.IMC 18:27
PROVIDERS: Admitting Provider Nurse Practitioner Acute Care; Emergency Provider Emergency Medicine Emergency Medical Services; Visit Provider Physician Assistant Medical
DX: A41.89 Other specified sepsis (principal); J18.9 Pneumonia, unspecified organism; U07.1 COVID-19; N39.0 Urinary tract infection, site not specified; D61.818 Other pancytopenia; E87.1 Hypo-osmolality and hyponatremia; E03.9 Hypothyroidism, unspecified; E11.9 Type 2 diabetes mellitus without complications; B96.1 Klebsiella pneumoniae [K. pneumoniae] as the cause of diseases classified elsewhere; E78.5 Hyperlipidemia, unspecified; F32.A Depression, unspecified; F03.90 Unspecified dementia, unspecified severity, without behavioral disturbance, psychotic disturbance, mood disturbance, and anxiety; E86.1 Hypovolemia; Z79.890 Hormone replacement therapy; Z79.899 Other long term (current) drug therapy
CPT/HCPCS: 0241U; 36415; 70450; 71045; 80048; 80053; 80076; 81001; 82550; 82947; 83605; 83735; 84484; 85025; 85027; 85610; 85730; 87040; 87086; 87088; 87186; 93005; 97162; 99285; C1758; J0456; J0696; J1644; J2270

== ENCOUNTER → 2023-01-06 13:25 | Outpatient (BNV) | payer OTHER, MEDICAID, SELFPAY | PROVIDERS: Admitting Provider Nurse Practitioner Acute Care; Emergency Provider Emergency Medicine Emergency Medical Services; Visit Provider Nurse Practitioner Acute Care | DX: U07.1 COVID-19 (principal); N39.0 Urinary tract infection, site not specified; J18.9 Pneumonia, unspecified organism; D61.818 Other pancytopenia; R74.01 Elevation of levels of liver transaminase levels | CPT/HCPCS: 99223; 99232; 99239 ==

== ENCOUNTER 2024-01-29 18:31 | Inpatient (IN) | payer OTHER, SELFPAY ==
--- NOTE | ~2024-01-29 | XR_ITS ---
EXAMINATION: XR SHOULDER, RIGHT CLINICAL INFORMATION: fall, pain COMPARISON: None available. TECHNIQUE: AP external rotation, Grashey, scapular Y, and axillary views of the right shoulder. FINDINGS: No acute fracture. Superior subluxation of the humeral head abutting the undersurface of the acromion and clavicle which appear chronically remodeled compatible with rotator cuff arthropathy. XR/XR shoulder RT min 2V IMPRESSION: 1. No acute fracture or dislocation. 2. Chronic rotator cuff arthropathy. Electronically signed by: Aston Tanner MD 01/29/2024 11:02 PM [facility]
--- NOTE | ~2024-01-29 | CT_ITS ---
EXAMINATION: CT ABDOMEN AND PELVIS WITHOUT CONTRAST CLINICAL INFORMATION: Pain. Concern for pyelonephritis. COMPARISON: July 04, 2012 TECHNIQUE: Multidetector volumetric imaging was performed from the superior aspect of the liver through the pubic symphysis. Sagittal and coronal reformatted images were obtained on the technologist's workstation. This CT examination was performed using dose optimization techniques as appropriate, variously including the following: *Automated exposure control *Adjustment of mA and/or kV according to patient size (this includes techniques or standardized protocols for targeted exams where dose is matched to indication/reason for exam; i.e. extremities or head) *Use of iterative reconstruction technique DLP: 1069 mGy-cm FINDINGS: LUNG BASES: There is interstitial coarsening/scarring at the lung bases. There is a minimal left pleural effusion. LIVER, GALLBLADDER, AND BILIARY TREE: The liver is small and irregular in contour. No focal liver lesions are seen. There is no intrahepatic biliary duct dilatation. There has been a prior cholecystectomy. PANCREAS: Unremarkable. SPLEEN: The spleen is enlarged measuring up to 16 cm. ADRENAL GLANDS: Unremarkable. KIDNEYS AND URETERS: The kidneys are normal in size, shape, and attenuation. No hydronephrosis, hydroureter, or calculi seen. No perinephric stranding. BLADDER: Unremarkable. GASTROINTESTINAL TRACT: There are diverticula of the transverse, descending and sigmoid colon without evidence for acute diverticulitis. ABDOMINAL WALL: There are multiple abdominal wall hernias containing fat. LYMPH NODES: Normal. VASCULAR: There is atherosclerotic plaque of the abdominal aorta and proximal branches. PELVIC VISCERA: The pelvic viscera are unremarkable. There is small volume ascites. OSSEOUS STRUCTURES: There is curvature of the thoracolumbar spine convex to the left. There is grade 1 anterolisthesis L4 over L5. There is diffuse moderate thoracolumbar degenerative change and facet degenerative change. CT/CT abdomen pelvis wo IV con IMPRESSION: 1. Normal-appearing kidneys. No evidence of pyelonephritis. The study is limited due to lack of IV contrast. 2. Diverticulosis without evidence of diverticulitis. 3. Cirrhosis, splenomegaly and ascites. 4. Multiple abdominal wall hernias containing fat. Fleischner guidelines were followed. Electronically signed by: Kunal Ewing MD 01/30/2024 01:58 AM [facility] [place]
--- NOTE | ~2024-01-29 | CT_ITS ---
EXAMINATION: CT HEAD WITHOUT CONTRAST CT CERVICAL SPINE WITHOUT CONTRAST CLINICAL INFORMATION: Head and neck trauma. COMPARISON: CT head from 01/06/2023. TECHNIQUE: Contiguous axial imaging was performed from the skull base to vertex without intravenous administration of contrast. Contiguous axial imaging was performed from the upper chest through the skull base without intravenous administration of contrast. Coronal and sagittal reformats were obtained at the acquisition workstation. This CT examination was performed using dose optimization techniques as appropriate, variously including the following: *Automated exposure control. *Adjustment of mA and/or kV according to patient size (this includes techniques or standardized protocols for targeted exams where dose is matched to indication/reason for exam; i.e. extremities or head). *Use of iterative reconstruction technique. DLP: 1005 mGy-cm FINDINGS: Head: There is no evidence of acute intracranial hemorrhage or edematous territorial infarction. Hurt-white matter differentiation is preserved. Confluent hypoattenuation in the periventricular and deep white matter. Proportional prominence of the ventricles and sulcal spaces without evidence of obstructive hydrocephalus. No abnormal mass effect or midline shift. No extra-axial fluid collections. Calcific atherosclerotic disease of the intracranial internal carotid and vertebral arteries. No hyperdense vessel sign. Moderate subgaleal hematoma along the left aspect of the frontal bone, measuring up to 0.4 cm in depth. No acute osseous abnormalities. Near complete opacification of the left frontal sinus and left maxillary sinus. Prominent mucosal thickening of the right maxillary sinus. Hyperattenuating material centrally within the sinuses. Mild mucosal thickening of the remaining paranasal sinuses. The mastoid air cells and middle ear cavities are clear. Advanced degenerative arthropathy of the temporomandibular joints. Bilateral lens extractions. Cervical Spine: Irregular demineralization of the cervical spine. The atlantooccipital and atlantoaxial articulations remain well aligned. Advanced degenerative arthropathy of the atlantodental articulation. Moderate degenerative anterolisthesis of C3 on C4. Mild degenerative retrolisthesis of C4 on C5. Moderate degenerative stepwise anterolistheses of C7-T2. Straightening of the normal cervical lordosis. Otherwise, there is anatomic alignment of the vertebral bodies and posterior elements. Advanced degenerative disc disease from C3-T1 and T2-T4. Facet and uncovertebral joint arthropathy leads to osseous encroachment on the neural foramina from C3-T1. No evidence of acute fracture or subluxation. The vertebral body heights are maintained. There is no prevertebral soft tissue swelling. The thyroid gland is atrophic. The remaining cervical soft tissues are within normal limits. Multiple pulmonary nodules in the bilateral lung apices, measuring up to 0.[address]/CT cervical spine wo IV con IMPRESSION: 1. No evidence of acute intracranial hemorrhage or edematous territorial infarction. Extensive underlying microangiopathy and generalized cerebral volume loss. 2. No evidence of acute fracture or traumatic subluxation of the cervical spine. Advanced multilevel degenerative spondyloarthropathy of the cervical spine. 3. Left frontal scalp hematoma. No associated osseous abnormalities. 4. Multiple pulmonary nodules in the bilateral lung apices, measuring up to 0.7 cm. According to the UPDATED 2017 Fleischner Society recommendations, the advised follow-up imaging for multiple solid nodules measuring up to 6-8 mm is follow-up CT at 3-6 months. In high-risk patients, subsequent CT follow-up at 18 to 24 months is recommended. In low-risk patients, subsequent CT follow-up at 18 to 24 months is optional. Electronically signed by: Thanh Nathan DO 01/29/2024 10:52 PM [facility]
--- NOTE | ~2024-01-29 | XR_ITS ---
EXAMINATION: XR CHEST CLINICAL INFORMATION: fall weakness COMPARISON: Chest radiograph dated 01/06/2023 TECHNIQUE: Frontal view of the chest was obtained. FINDINGS: The patient is rotated. Elevation of the left hemidiaphragm. Low lung volumes. Diffuse increase in interstitial lung markings. Patchy opacity in the left lung base. Trace left pleural effusion. No right pleural effusion. No pneumothorax. Enlarged cardiac silhouette is likely projectional. Atheromatous aortic knob. Severe degenerative changes of the bilateral shoulders, greater on the right. No acute osseous abnormality. XR/XR chest 1V IMPRESSION: 1. Low lung volumes with diffuse increase in interstitial lung markings, which may be secondary to atelectasis or pulmonary edema. 2. Patchy opacity in the left lung base, which may represent atelectasis or infectious/inflammatory process. 3. Trace left pleural effusion. Electronically signed by: Marlyn Steele MD 01/29/2024 10:57 PM [facility]
--- NOTE | 2024-01-29 19:18 | ED_ITS ---
HPI - Fall General Chief Complaint: Fall Stated Complaint: FALL WITH HEADSTRIKE Time Seen by Provider: 01/29/24 19:06 Source: patient and EMS Mode of arrival: EMS Limitations: other (dementia) History of Present Illness ED Provider: GALINA MCDOWELL Narrative: 79 yo female with PMH of HLD, DM, hypothyroidism, dementia who is very confused at baseline, EMS notes she is blind as well, she is not on blood thinners reportedly she was using a walker yesterday and she went face first over the walker striking forehead, no LOC has large contusion on the forehead. She c/o shoulder pain. EMS tells me that the patient has been having increased assist at home and family mentioned PT/CM. Patient has no complaints other than headache. MD complaint: fall Onset (ago): day(s) (yesterday) Fall from: standing Fall witnessed: yes, by family Place fall occurred: home Loss of consciousness: none Prolonged down time: no Symptoms prior to fall: none Context: tripped/slipped Location of injury: head Location of injury - extremities: right: shoulder Severity: moderate Quality: dull and aching Associated symptoms (after fall): other (family reports increased difficulty walking) Related Data Home Medications ?Medication ?Instructions ?Recorded ?Confirmed brimonidine 0.2 % eye drops 1 drp ophthalmic (eye) BID 01/06/23 01/06/23 cholecalciferol (vitamin D3) 50 50 mcg PO QAM 01/06/23 01/06/23 mcg (2,000 unit) tablet (Vitamin D3) donepezil 10 mg tablet 10 mg PO BEDTIME 01/06/23 01/06/23 dorzolamide 22.3 mg-timolol 6.8 1 drp ophthalmic (eye) BID 01/06/23 01/06/23 mg/mL eye drops ferrous sulfate 325 mg (65 mg 325 mg PO DAILY 01/06/23 01/06/23 iron) tablet fluticasone propionate 50 1 spray intranasal DAILY PRN 01/06/23 01/06/23 mcg/actuation nasal allergies spray,suspension gabapentin 300 mg capsule 600 mg PO TID 01/06/23 01/06/23 insulin NPH isoph U-100 human 100 34 unit subcut DAILY 01/06/23 01/06/23 unit/mL subcutaneous suspension (Humulin N NPH U-100 Insulin (isophane susp)) latanoprost 0.005 % eye drops 1 drp ophthalmic (eye) BEDTIME 01/06/23 01/06/23 levothyroxine 112 mcg tablet 112 mcg PO DAILY@0600 01/06/23 01/06/23 melatonin 10 mg capsule 10 mg PO BEDTIME 01/06/23 01/06/23 metformin 500 mg tablet 500 mg PO BID 01/06/23 01/06/23 netarsudil 0.02 % eye drops 1 drp ophthalmic (eye) BEDTIME 01/06/23 01/06/23 (Rhopressa) quetiapine 150 mg tablet,extended 150 mg PO BEDTIME 01/06/23 01/06/23 release 24 hr quetiapine 25 mg tablet 25 mg PO BEDTIME 01/06/23 01/06/23 risperidone 1 mg tablet 1 mg PO BID 01/06/23 01/06/23 simvastatin 40 mg tablet 40 mg PO BEDTIME 01/06/23 01/06/23 tramadol 50 mg tablet 50 mg PO BEDTIME 01/06/23 01/06/23 venlafaxine 150 mg 150 mg PO BID 01/06/23 01/06/23 capsule,extended release 24 hr Previous Rx's ?Medication ?Instructions ?Recorded cefuroxime axetil 250 mg tablet 250 mg PO BID 2 days #4 tabs 01/10/23 Allergies Allergy/AdvReac Type Severity Reaction Status Date / Time codeine [Codeine] Allergy Mild SEVERE Verified 01/29/24 19:24 VOMITING codeine Allergy Unknown rash Uncoded 01/06/23 09:41 Review of Systems 2 Review of Systems: ROS unable to be obtained due to dementia [facility] Past Medical History Attestation statement: The following information was validated with the patient. Source: old records reviewed Medical History Dementia Depression Hyperlipidemia Diabetes mellitus Surgical History H/O cataract removal with insertion of prosthetic lens H/O knee surgery H/O: hysterectomy Family History Family History (Updated 01/06/23 @ 15:16 by Wilma Geronimo NP) Father Lung cancer Social History Social History Alcohol intake: never Patient Tobacco Use Status: Never used Tobacco Smoked in Last 30 Days: No Use of substances other than those prescribed or required for medical reasons: No Advance Directives Date on File: 01/06/23 Do you have a plan to hurt others: No Plan service: No Physical Exam 2 Vital Signs: Vital Signs: Last Vital Signs Temp 97.6 F 01/29/24 19:19 Pulse 104 H 01/29/24 19:19 Resp 16 01/29/24 19:19 BP 100/68 01/29/24 19:19 Pulse Ox 94 01/29/24 19:19 O2 Del Method Room Air 01/29/24 19:19 BMI result Body Mass Index 36.2 Appearance: Alert. Oriented to self No acute distress. Eyes: Pupils equal, round and reactive to light. ENT: Pharynx normal. large contusion with abrasion to the forehead Neck: Normal inspection. Neck supple. CVS: Normal heart rate and rhythm. Pulses normal. Respiratory: No respiratory distress. Breath sounds normal. Abdomen: Soft and non-tender. Skin: Skin warm and dry. Normal skin color. Extremities: No lower extremity edema. Mild ttp to R shoulder - distal NV intact Neuro: oriented to self, moves all extremities equally Course Course Course Narrative: at this time infection suspected lactic acid, cultures, IV ceftriaxone ordered Medications Administered Discontinued Medications Generic Name Dose Route Start Last Admin Trade Name Cruz PRN Reason Stop Dose Admin Acetaminophen 650 mg 01/29/24 19:10 01/29/24 20:31 Acetaminophen 325 Mg Tablet PO 01/29/24 19:11 650 mg ONCE ONE Administration Medical Decision Making Medical Decision Making [facility] Narrative: 79 yo female with PMH of HLD, DM, hypothyroidism, dementia who is very confused at baseline, EMS notes she is blind as well, she is not on blood thinners here with c/o fall yesterday and increase and falls and gait instability she has R shoulder pain and contusion to head - she is at her baseline per EMS. I have ordered CXR, R shoulder xray, CT head/cspine and basic labs, UA. PO tylenol for pain. Possible toxic or metabolic encephalopathy, trauma, contusion, ICH. Family also notes to EMS that she is requiring more assistance will need to likely refer to PT/CM if no acute findings. Differential Diagnosis Differential Diagnoses: The differential diagnosis associated with the presentation includes toxic or metabolic encephalopathy, trauma, contusion, ICH Admission/Observation Consideration of admission/observation: Escalation of care including admission/observation considered signed out to Mark EDDY Lab Data MDM Lab Attestation statement: I reviewed the patient's lab results. 01/29/24 20:30 01/29/24 20:30 Labs: Lab Results 01/29/24 Range/Units 20:30 WBC 5.0 (4.8-10.8) X10*3/uL RBC 3.96 L (4.20-5.50) X10*6/uL Hgb 11.8 L (12.0-16.0) g/dl Hct 36.0 L (37.0-47.0) % MCV 90.9 (80.0-98.0) fL MCH 29.8 (27.0-33.0) pg MCHC 32.8 (31.0-35.0) g/dl RDW 16.0 (11.0-16.0) % Plt Count 98 L D (160-400) X10*3/uL MPV 9.7 (9.4-12.3) fL Immature Gran % (Auto) 0.2 (0.0-0.4) % Neut % (Auto) 61.6 (45-73) % Lymph % (Auto) 23.6 (20-40) % [place] % (Auto) 11.2 H (2-11) % Eos % (Auto) 3.0 (0-4) % Baso % (Auto) 0.4 (0-2) % Lymph # (Auto) 1.2 (1.2-4.9) X10*3/uL [place] # (Auto) 0.6 (0.1-1.2) X10*3/uL Eos # (Auto) 0.2 (0.0-0.4) X10*3/uL Baso # (Auto) 0.0 (0.0-0.2) X10*3/uL Abs Immat Gran (auto) 0.01 (0.00-0.03) X10*3/uL Absolute Neuts (auto) 3.1 (2.0-8.3) x10*3/uL Absolute Nucleated RBC 0.000 (0.0-0.012) X10*3/uL Nucleated RBC % (auto) 0.0 (0.0-0.2) /100WBC Sodium 144 (135-145) mmol/L Potassium 3.7 (3.3-5.1) mmol/L Chloride 111 H (96-108) mmol/L Carbon Dioxide 24 (22-29) mmol/L Anion Gap 13 (12-20) BUN 15 (9-16) mg/dL Creatinine 0.61 (0.5-1.4) mg/dL Estim Creat Clear Calc 76.2 Estimated GFR > 60 Random Glucose 118 H (60-115) mg/dL Calcium 8.4 (8.4-10.2) mg/dL Magnesium 1.5 L (1.6-2.6) mg/dL Total Bilirubin 0.4 (0.0-1.0) mg/dL Direct Bilirubin 0.2 (0.0-0.5) mg/dL AST 52 H (5-31) U/L ALT 27 (0-31) U/L Alkaline Phosphatase 154 H (39-117) U/L Total Creatine Kinase 36 (26-140) U/L Troponin I High Sens < 2.7 D (<3.5-17.0) ng/L Total Protein 5.6 L (6.5-8.0) g/dL Albumin 2.8 L (3.5-5.0) g/dL Lipase 31 (8-78) U/L Urine Color Dark Yellow Urine Appearance Cloudy Urine pH 5.5 (5.0-9.0) Ur Specific [place] >= 1.030 H (1.005-1.025) Urine Protein Trace (Neg-Trace) mg/dL Urine Glucose (UA) Negative (Negative) mg/dL Urine Ketones Trace (Negative) mg/dL Urine Blood Negative (Negative) Urine Nitrite Positive H (Negative) Ur Leukocyte Esterase Moderate (2+) H (Negative) Urine RBC 0-2 (0-2) /HPF Urine WBC 21-50 H (0-5) /HPF Ur Squamous Epith Cells 3-5 (0-2) /HPF Calcium Oxalate Crystal Present Urine Bacteria 4+ (None Seen) Hyaline Casts 11-20 (0-2) /LPF Independent Interpretation I performed an independent interpretation of an: EKG, Plain X-Ray and CT Scan Interpretation: Rate: 94 Rhythm: NSR Stokes: left Normal P waves. Normal DEYANIRA. Normal QRS complex. ST T wave : no ANNEMARIE, flat t waves III and aVF qTC: 467 prior studies: no acute ischemia The study has been interpreted contemporaneously by me. . Independent Historian Clinical information obtained from an independent historian. History obtained from or confirmed by: EMS External Record Review External record reviewed: Outpatient record Discharge Plan Discharge Clinical Impression: Acute UTI, Hypomagnesemia Contusion of face Qualifiers: Encounter type: initial encounter Qualified Code(s): S00.83XA - Contusion of other part of head, initial encounter Patient Disposition: Still a Patient Prescriptions: No Action latanoprost 0.005 % Drops 1 drp OPHTHALMIC (EYE) BEDTIME Rx Instructions: both eyes metformin 500 mg Tablet 500 mg PO BID donepezil 10 mg Tablet 10 mg PO BEDTIME venlafaxine 150 mg Capsule,Extended Release 24hr 150 mg PO BID brimonidine 0.2 % Drops 1 drp OPHTHALMIC (EYE) BID Rx Instructions: administer approximately 8 hours apart dorzolamide-timolol 22.3-6.8 mg/mL Drops 1 drp OPHTHALMIC (EYE) BID Rx Instructions: both eyes fluticasone propionate 50 mcg/actuation [place],Suspension 1 spray INTRANASAL DAILY PRN (Reason: allergies) Rx Instructions: administer into each nostril risperidone 1 mg Tablet 1 mg PO BID quetiapine 150 mg Tablet Extended Release 24 Hr 150 mg PO BEDTIME melatonin 10 mg Capsule 10 mg PO BEDTIME Rhopressa 0.02 % Drops 1 drp OPHTHALMIC (EYE) BEDTIME Rx Instructions: both eyes quetiapine 25 mg Tablet 25 mg PO BEDTIME tramadol 50 mg Tablet 50 mg PO BEDTIME simvastatin 40 mg Tablet 40 mg PO BEDTIME ferrous sulfate 325 mg (65 mg iron) Tablet 325 mg PO DAILY Humulin N NPH U-100 Insulin 100 unit/mL Suspension 34 unit SUBCUT DAILY gabapentin 300 mg Capsule 600 mg PO TID levothyroxine 112 mcg Tablet 112 mcg PO DAILY@0600 cholecalciferol (vitamin D3) [Vitamin D3] 50 mcg (2,000 unit) Tablet 50 mcg PO QAM cefuroxime axetil 250 mg tablet 250 mg PO BID 2 Days Qty: 4 0RF Print Language: Pashto
[2024-01-29 19:19] VITALS: BP 100/68; PULSE 104; RESP 16; TEMP 36.4; O2SAT 94; BMI 36.2
--- NOTE | 2024-01-29 19:44 | PC.NURSE ---
pt exchange engineer into hospital attire.
--- NOTE | 2024-01-29 19:55 | PC.NURSE ---
pt taken to ct-scan
--- NOTE | 2024-01-29 19:56 | ECG_ITS ---
Test Reason : FALL Blood Pressure : / mmHG Vent. Rate : 094 BPM Atrial Rate : 094 BPM P-R Int : 208 ms QRS Dur : 086 ms QT Int : 374 ms P-R-T Axes : 022 -06 026 degrees QTc Int : 467 ms Sinus rhythm with Premature ventricular complexes or Fusion complexes Inferior infarct , age undetermined Cannot rule out Anterior infarct , age undetermined Abnormal ECG When compared with ECG of 06-JAN-2023 10:09, Fusion complexes are now Present Premature ventricular complexes are now Present Referred By: Oxana Farooq Electronically Signed By:Surya De Souza
[2024-01-29] MEDS: Acetaminophen 325 MG TABLET 650 MG PO (20:31)
--- NOTE | 2024-01-29 20:34 | PC.NURSE ---
medicated per mar.
[2024-01-29 20:37] LABS: MANUAL DIFF FLAG NO
[2024-01-29 20:38] LABS: Basophils Percent Auto 0.4 % (0-2); Eosinophils Absolute Auto 0.2 X10*3/uL (0.0-0.4); Hemoglobin 11.8 g/dl (12.0-16.0); Imm Gran Abs Auto 0.01 X10*3/uL (0.00-0.03); Imm Gran Pct Auto 0.2 % (0.0-0.4); Lymphocytes Absolute Auto 1.2 X10*3/uL (1.2-4.9); Lymphocytes Percent Auto 23.6 % (20-40); Mean Corpuscular HGB Conc 32.8 g/dl (31.0-35.0); Mean Corpuscular Hemoglobin 29.8 pg (27.0-33.0); Mean Corpuscular Volume 90.9 fL (80.0-98.0); Mean Platelet Volume 9.7 fL (9.4-12.3); Monocytes Absolute Auto 0.6 X10*3/uL (0.1-1.2); Monocytes Percent Auto 11.2 % (2-11); Neutrophils Absolute Auto 3.1 x10*3/uL (2.0-8.3); Neutrophils Percent Auto 61.6 % (45-73); Red Blood Count 3.96 X10*6/uL (4.20-5.50)
[2024-01-29 20:41] LABS: Appearance Urine Cloudy; Color Urine Dark Yellow; Glucose Urine UA Negative (Negative); Leukocyte Esterase Urine Moderate (2+) (Negative); Nitrite Urine Positive (Negative); PH 5.5 (5.0-9.0); Specific Gravity - Urine >= 1.030 (1.005-1.025); UMIC TRIGGER UACC YES; Urine Blood Negative (Negative); Urine Ketones Trace mg/dL (Negative); Urine Protein Trace mg/dL (Neg-Trace)
[2024-01-29 20:43] LABS: Platelet Count 98 X10*3/uL (160-400)
[2024-01-29 20:55] LABS: Alanine Aminotransferase 27 U/L (0-31); Albumin Level 2.8 g/dL (3.5-5.0); Alkaline Phosphatase 154 U/L (39-117); Anion Gap 13 (12-20); Aspartate Amino Transferase 52 U/L (5-31); Bilirubin Direct 0.2 mg/dL (0.0-0.5); Bilirubin Total 0.4 mg/dL (0.0-1.0); Blood Urea Nitrogen 15 mg/dL (9-16); Calcium 8.4 mg/dL (8.4-10.2); Carbon Dioxide 24 mmol/L (22-29); Chloride 111 mmol/L (96-108); Creatinine Clr Calc Pharmacy 76.2; Estimated Glomerular Filt Rate > 60; Glucose Random 118 mg/dL (60-115); Lipase 31 U/L (8-78); Magnesium 1.5 mg/dL (1.6-2.6); Potassium 3.7 mmol/L (3.3-5.1); Sodium 144 mmol/L (135-145); Total Protein 5.6 g/dL (6.5-8.0)
[2024-01-29 21:00] LABS: Bacteria Urine 4+ (None Seen); Calcium Oxalate Crystals Urine Present; RBC Urine 0-2 /HPF (0-2); UACC Culture Trigger YES; WBC Urine 21-50 /HPF (0-5)
[2024-01-29 21:05] LABS: Troponin-I High Sensitivity < 2.7 ng/L (<3.5-17.0)
[2024-01-29 21:22] LABS: Influenza A PCR NEGATIVE (Negative); Influenza B PCR NEGATIVE (Negative); Resp Syncy Virus RNA Qual PCR NEGATIVE (Negative); SARS COV2 PCR INHOUSE NEGATIVE (Negative)
[2024-01-29] MEDS: 0.9 % Sodium Chloride 1,000 ML 999 ML IV ×2 (21:28→22:44)
[2024-01-29] MEDS: Magnesium Sulfate/H2O 2 GM/50 ML PIGGYBACK IV (21:28)
[2024-01-29] MEDS: cefTRIAXone sodium 1 GM VIAL IVPUSH (21:29)
--- NOTE | 2024-01-29 21:36 | PC.NURSE ---
Iv place in right and left arm, Medicated per mar, pure wick in placed, pt on bedside monitor.
[2024-01-29 21:53] LABS: Lactic Acid 4.2 mmol/L (0.5-2.0)
[2024-01-29 21:59] VITALS: BP 108/64; PULSE 73; RESP 17; TEMP 36.6; O2SAT 95
[2024-01-29 22:34] VITALS: BP 118/68; PULSE 65; RESP 12; TEMP 36.4; O2SAT 93
[2024-01-29 22:50] VITALS: BP 123/69; PULSE 75; RESP 15; TEMP 36.4; O2SAT 96
[2024-01-29 23:26] LABS: Reflex Lactate? Lactic Acid Added
[2024-01-29 23:50] VITALS: BP 137/79; PULSE 76; RESP 13; TEMP 36.4; O2SAT 93
[2024-01-29 23:57] LABS: ~Lactic Acid-LAB USE ONLY 1.1 mmol/L (0.5-2.0)
[2024-01-30] VITALS (10 sets, daily range): BP systolic 118–169; BP diastolic 68–87; PULSE 60–75; RESP 12–20; TEMP 36.2–36.6; O2SAT 93–100
--- NOTE | 2024-01-30 03:58 | PM.IMHP ---
History of Present Illness Date of Service: 01/30/24 Attending physician on admission: Onel Patel Chief Complaint: Generalized weakness with falls 79 year old legally blind white female with history of hyperlipidemia, type 2 diabetes mellitus (on insulin), Glaucoma, hypothyroidism, dementia (confused at baseline), who presents to the emergency room from home whre she lives alone for evaluation following a fall. She was using her walker to ambulate yesterday when she fell face first over the walker striking her forehead and sustaining a large abrasion on the forehead and now has a headache and bilateral shoulder pain. She did not loose consciousness and a head CT done in the ED did not show any acute intracranial pathology. Her family also reported that of late, she has been increasing weak and has required more assistance at home and that this usually happens when she has a urinary tract infection. In fact, work up today had findings concerning for a UTI with her urine revealing cloudy urine with that was positive for nitrites and had 2+ leukocyte esterase and 21-50 WBC/hpf with 4+ bacteria. An assessment of asthenia due to UTI was made and she was started on IV Ceftriaxone and admission requested. She otherwise has no other complains at this time. Review of Systems Review of Systems: 12 system review was completed and is as noted above in the HPI otherwise the rest of the system is negative. [facility] Medical History Dementia Depression Hyperlipidemia Diabetes mellitus Family History (Updated 01/06/23 @ 15:16 by Wilma Geronimo NP) Father Lung cancer Surgical History H/O cataract removal with insertion of prosthetic lens H/O knee surgery H/O: hysterectomy Social History Alcohol intake: never Patient Tobacco Use Status: Never used Tobacco Smoked in Last 30 Days: No Use of substances other than those prescribed or required for medical reasons: No Advance Directives: Yes Advance Directives on File: Yes Advance Directives Date on File: 01/06/23 Do you have a plan to hurt others: No Plan service: No Meds Allergies Allergy/AdvReac Type Severity Reaction Status Date / Time codeine [Codeine] Allergy Mild SEVERE Verified 01/29/24 19:24 VOMITING codeine Allergy Unknown rash Uncoded 01/06/23 09:41 Home Medications ?Medication ?Instructions ?Recorded ?Confirmed ?Last Taken ?Type brimonidine 0.2 % eye drops 1 drp ophthalmic (eye) BID 01/06/23 01/06/23 Unknown History cholecalciferol (vitamin D3) 50 50 mcg PO QAM 01/06/23 01/06/23 Unknown History mcg (2,000 unit) tablet (Vitamin D3) donepezil 10 mg tablet 10 mg PO BEDTIME 01/06/23 01/06/23 Unknown History dorzolamide 22.3 mg-timolol 6.8 1 drp ophthalmic (eye) BID 01/06/23 01/06/23 Unknown History mg/mL eye drops ferrous sulfate 325 mg (65 mg 325 mg PO DAILY 01/06/23 01/06/23 Unknown History iron) tablet fluticasone propionate 50 1 spray intranasal DAILY PRN 01/06/23 01/06/23 Unknown History mcg/actuation nasal allergies spray,suspension gabapentin 300 mg capsule 600 mg PO TID 01/06/23 01/06/23 Unknown History insulin NPH isoph U-100 human 100 34 unit subcut DAILY 01/06/23 01/06/23 Unknown History unit/mL subcutaneous suspension (Humulin N NPH U-100 Insulin (isophane susp)) latanoprost 0.005 % eye drops 1 drp ophthalmic (eye) BEDTIME 01/06/23 01/06/23 Unknown History levothyroxine 112 mcg tablet 112 mcg PO DAILY@0600 01/06/23 01/06/23 Unknown History melatonin 10 mg capsule 10 mg PO BEDTIME 01/06/23 01/06/23 Unknown History metformin 500 mg tablet 500 mg PO BID 01/06/23 01/06/23 Unknown History netarsudil 0.02 % eye drops 1 drp ophthalmic (eye) BEDTIME 01/06/23 01/06/23 Unknown History (Rhopressa) quetiapine 150 mg tablet,extended 150 mg PO BEDTIME 01/06/23 01/06/23 Unknown History release 24 hr quetiapine 25 mg tablet 25 mg PO BEDTIME 01/06/23 01/06/23 Unknown History risperidone 1 mg tablet 1 mg PO BID 01/06/23 01/06/23 Unknown History simvastatin 40 mg tablet 40 mg PO BEDTIME 01/06/23 01/06/23 Unknown History tramadol 50 mg tablet 50 mg PO BEDTIME 01/06/23 01/06/23 Unknown History venlafaxine 150 mg 150 mg PO BID 01/06/23 01/06/23 Unknown History capsule,extended release 24 hr Physical Exam Vital Signs and Narrative: Vital Signs: Last Vital Signs Temp 97.8 F 01/30/24 02:17 Pulse 72 01/30/24 02:17 Resp 20 01/30/24 02:17 BP 137/74 01/30/24 02:17 Pulse Ox 96 01/30/24 02:17 O2 Del Method Room Air 01/30/24 02:17 BMI result Body Mass Index 36.2 General: Obese elderly WF in bed. Sleeping but easily awakened. In no obvious respiratory distress. Psychiatric: Deferred HEENT: Normocephalic but with a bruise on the forehead. atraumatic. No pallor or jaundice. Moist oral mucus membranes Neck: Supple. No JVD Lungs: Clear to auscultation bilaterally. No rales, rhonchi or wheezes Heart: RRR. STEPHEN in Lt & Rt sternal border. No rubs or gallops. No peripheral edema. Abdomen: Obese, flabby, soft, non-tender. Normoactive bowel sounds. No visceromegaly. Genitourinary: Deferred Back/Spine/Pelvis: Deferred Skin: Warm, dry, well perfused. Normal turgor. No mottling. Normal capillary refill (< 2 seconds). Neurologic: Awake and alert. Intact speech & cognition. Normal gait & balance. CN II-XII grossly normal. Extremities: Normal muscle bulk, tone and power. No obvious deformities. No peripheral edema. Good peripheral pulses. Results Labs 01/29/24 20:30 01/29/24 20:30 Labs: Laboratory Results - last 24 hr 01/29/24 01/29/24 01/29/24 20:30 21:21 23:30 MCV 90.9 MCH 29.8 MCHC 32.8 RDW 16.0 Plt Count 98 L D MPV 9.7 Immature Gran % (Auto) 0.2 Neut % (Auto) 61.6 Lymph % (Auto) 23.6 Brooke % (Auto) 11.2 H Eos % (Auto) 3.0 Baso % (Auto) 0.4 Lymph # (Auto) 1.2 [place] # (Auto) 0.6 Eos # (Auto) 0.2 Baso # (Auto) 0.0 Abs Immat Gran (auto) 0.01 Absolute Neuts (auto) 3.1 Absolute Nucleated RBC 0.000 Nucleated RBC % (auto) 0.0 Anion Gap 13 Estim Creat Clear Calc 76.2 Estimated GFR > 60 Random Glucose 118 H Lactic Acid 4.2 H* Lactic Acid F/U @ 2Hr 1.1 Calcium 8.4 Magnesium 1.5 L Total Bilirubin 0.4 Direct Bilirubin 0.2 AST 52 H ALT 27 Alkaline Phosphatase 154 H Total Creatine Kinase 36 Troponin I High Sens < 2.7 D Total Protein 5.6 L Albumin 2.8 L Lipase 31 Urine Color Dark Yellow Urine Appearance Cloudy Urine pH 5.5 Ur Specific [place] >= 1.030 H Urine Protein Trace Urine Glucose (UA) Negative Urine Ketones Trace Urine Blood Negative Urine Nitrite Positive H Ur Leukocyte Esterase Moderate (2+) H Urine RBC 0-2 Urine WBC 21-50 H Ur Squamous Epith Cells 3-5 Calcium Oxalate Crystal Present Urine Bacteria 4+ Hyaline Casts 11-20 Influenza Type A (PCR) NEGATIVE Influenza Type B (PCR) NEGATIVE RSV RNA Qual (PCR) NEGATIVE SARS-CoV-2 RNA (RT-PCR) NEGATIVE Imaging Radiologist's Impressions: Impressions Head CT 01/29/24 19:10 IMPRESSION: 1. No evidence of acute intracranial hemorrhage or edematous territorial infarction. Extensive underlying microangiopathy and generalized cerebral volume loss. 2. No evidence of acute fracture or traumatic subluxation of the cervical spine. Advanced multilevel degenerative spondyloarthropathy of the cervical spine. 3. Left frontal scalp hematoma. No associated osseous abnormalities. 4. Multiple pulmonary nodules in the bilateral lung apices, measuring up to 0.7 cm. According to the UPDATED 2017 Fleischner Society recommendations, the advised follow-up imaging for multiple solid nodules measuring up to 6-8 mm is follow-up CT at 3-6 months. In high-risk patients, subsequent CT follow-up at 18 to 24 months is recommended. In low-risk patients, subsequent CT follow-up at 18 to 24 months is optional. Electronically signed by: Thanh Nathan DO 01/29/2024 10:52 PM [facility] Shoulder X-Ray 01/29/24 19:10 IMPRESSION: 1. No acute fracture or dislocation. 2. Chronic rotator cuff arthropathy. Electronically signed by: Aston Tanner MD 01/29/2024 11:02 PM EST RP Chest X-Ray 01/29/24 20:00 IMPRESSION: 1. Low lung volumes with diffuse increase in interstitial lung markings, which may be secondary to atelectasis or pulmonary edema. 2. Patchy opacity in the left lung base, which may represent atelectasis or infectious/inflammatory process. 3. Trace left pleural effusion. Electronically signed by: Marlyn Steele MD 01/29/2024 10:57 PM EST RP Cervical Spine CT 01/29/24 20:01 IMPRESSION: 1. No evidence of acute intracranial hemorrhage or edematous territorial infarction. Extensive underlying microangiopathy and generalized cerebral volume loss. 2. No evidence of acute fracture or traumatic subluxation of the cervical spine. Advanced multilevel degenerative spondyloarthropathy of the cervical spine. 3. Left frontal scalp hematoma. No associated osseous abnormalities. 4. Multiple pulmonary nodules in the bilateral lung apices, measuring up to 0.7 cm. According to the UPDATED 2017 Fleischner Society recommendations, the advised follow-up imaging for multiple solid nodules measuring up to 6-8 mm is follow-up CT at 3-6 months. In high-risk patients, subsequent CT follow-up at 18 to 24 months is recommended. In low-risk patients, subsequent CT follow-up at 18 to 24 months is optional. Electronically signed by: Thanh Nathan DO 01/29/2024 10:52 PM EST RP Abdomen/Pelvis CT 01/29/24 22:32 IMPRESSION: 1. Normal-appearing kidneys. No evidence of pyelonephritis. The study is limited due to lack of IV contrast. 2. Diverticulosis without evidence of diverticulitis. 3. Cirrhosis, splenomegaly and ascites. 4. Multiple abdominal wall hernias containing fat. Fleischner guidelines were followed. Electronically signed by: Kunal Ewing MD 01/30/2024 01:58 AM EST RP Assessment and Plan (1) Acute cystitis: Start date: 12/05/24 Qualifiers: Hematuria presence: without hematuria Qualified Code(s): N30.00 - Acute cystitis without hematuria Status: Acute - here with weakness and falls and UA with findings concerning for UTI - admit and continue with IV antibiotics (2) Asthenia: Status: Acute - secondary to senility and infection - treat underlying infection and monitor (3) Hypomagnesemia: Status: Acute - replete and recheck (4) Acidosis, lactic: Status: Acute - likely due to dehydration - this resolved with hydration (received 2 Litres of IV fluids) - monitor (5) Type 2 diabetes mellitus: Status: Acute - resume home dose of insulin - closely monitor blood sugars and manage as appropriate (6) Glaucoma: Qualifiers: Glaucoma type: unspecified Laterality: bilateral Qualified Code(s): H40.9 - Unspecified glaucoma Status: Acute - chronic and now legally blind - resume treatment (7) Hypothyroidism: Qualifiers: Hypothyroidism type: unspecified Qualified Code(s): E03.9 - Hypothyroidism, unspecified Status: Acute - resume levothyroxine (8) Dementia, senile: Status: Acute - resume Aricept Plan Will need inpatient stay for 3 nights for treatment of acute cystitis with asthenia as cannot go home where she lives alone and is not able to care for self. Total time managing care of this patient today: 80 minutes. Quality Stroke Does the patient have a stroke diagnosis?: No VTE Prior VTE?: No VTE Risk Level:: Medical - moderate - high VTE Device Contraindication: N/A - Device Ordered VTE Drug Contraindication: N/A - Med Ordered
[2024-01-30] MEDS: Enoxaparin Sodium 40 MG/0.4 ML SYRINGE SUBCUT (05:01)
[2024-01-30 05:09] LABS: MANUAL DIFF FLAG NO
--- NOTE | 2024-01-30 05:11 | PC.NURSE ---
radha care, completed and bed change. medicated per mar.
[2024-01-30 05:12] LABS: Basophils Percent Auto 0.5 % (0-2); Eosinophils Absolute Auto 0.1 X10*3/uL (0.0-0.4); Eosinophils Percent Auto 2.9 % (0-4); Hematocrit 37.4 % (37.0-47.0); Hemoglobin 11.8 g/dl (12.0-16.0); Imm Gran Abs Auto 0.01 X10*3/uL (0.00-0.03); Imm Gran Pct Auto 0.3 % (0.0-0.4); Lymphocytes Absolute Auto 0.9 X10*3/uL (1.2-4.9); Lymphocytes Percent Auto 23.5 % (20-40); Mean Corpuscular HGB Conc 31.6 g/dl (31.0-35.0); Mean Corpuscular Hemoglobin 28.9 pg (27.0-33.0); Mean Corpuscular Volume 91.7 fL (80.0-98.0); Mean Platelet Volume 10.1 fL (9.4-12.3); Monocytes Absolute Auto 0.4 X10*3/uL (0.1-1.2); Monocytes Percent Auto 9.9 % (2-11); Neutrophils Absolute Auto 2.4 x10*3/uL (2.0-8.3); Neutrophils Percent Auto 62.9 % (45-73); Red Blood Count 4.08 X10*6/uL (4.20-5.50); White Blood Count 3.7 X10*3/uL (4.8-10.8)
[2024-01-30 05:16] LABS: Platelet Count 91 X10*3/uL (160-400)
[2024-01-30 05:26] LABS: Anion Gap 13 (12-20); Blood Urea Nitrogen 11 mg/dL (9-16); Calcium 8.3 mg/dL (8.4-10.2); Carbon Dioxide 23 mmol/L (22-29); Chloride 112 mmol/L (96-108); Creatinine Clr Calc Pharmacy 80.1; Estimated Glomerular Filt Rate > 60; Glucose Random 95 mg/dL (60-115); Potassium 3.8 mmol/L (3.3-5.1); Sodium 144 mmol/L (135-145)
[2024-01-30] MEDS: 0.9 % Sodium Chloride Flush 3 ML SYRINGE IVFLUSH ×2 (07:46→22:27)
--- NOTE | 2024-01-30 09:00 | MHC.CM.PN ---
Patient has Dementia, CM spoke with /HCP/Khris @ [phone] and addressed IMM with him (original will be mailed certified letter to Khris and a copy will be placed on the chart). 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 Home/resume said services is the goal and CM has initiated and will follow for dc planning. Patient will require BLS transport to home and her PCP is through [employer].
--- NOTE | 2024-01-30 09:06 | PHA.MEDREC ---
Addendum entered by Makenzie Guerrero RPh 01/30/24 09:14: Med rec was reviewed by [facility]. Original Note: Pharmacy Consult ? Medication Reconciliation Pharmacy has completed the medication reconciliation. Confirmed med rec with list from [facility].
--- NOTE | 2024-01-30 12:18 | MHC.CM.PN ---
CM received a call from [employer]/Brisa,and has faxed Brisa the requested clinical update to [phone]. PT is recommending STR; family indicated this morning that home/resume services is the goal. On 01/31/2024, Brisa is not working; the [facility] Contact on that day is Ariana Teresa @ [phone].
--- NOTE | 2024-01-30 12:35 | P.PNIM_ITS ---
Subjective Subjective Date of Service: 01/30/24 Interval History: Seen and examined this morning Follow-up for UTI, fall Awake, alert, no specific complaints but poor historian. denies pain, cp , sob confused (dementia) Cardiovascular Cardiovascular: Denies chest pain and Denies dyspnea Respiratory Respiratory: Denies dyspnea Physical Exam 2 Vital Signs: Vital Signs: Last Vital Signs Temp 97.5 F 01/30/24 10:56 Pulse 75 01/30/24 11:52 Resp 14 01/30/24 10:56 BP 147/87 H 01/30/24 11:52 Pulse Ox 98 01/30/24 11:52 O2 Del Method Room Air 01/30/24 10:56 BMI result Body Mass Index 36.2 Const: General: comfortable, alert and awake Nutritional Appearance: obese Orientation/consciousness: oriented to person Resp: Effort & Inspection: normal respiratory effort, able to speak in complete sentences, no respiratory distress and no use of accessory muscles Cardio: Rate: regular rate GI: Inspection: No distended Palpation (GI): Soft to palpation Skin: Other: bruising around left eye/forehead Neuro: General: oriented to person, moves all extremities and CN's II-XI intact bilaterally Objective Data Active Medications Acetaminophen (Acetaminophen 325 Mg Tablet) 650 mg PO Q6H PRN PRN Reason: Pain, Mild (Pain Scale 1-3), fever or headache Calcium Carbonate (Calcium Carbonate 750 Mg Tab.Chew) 750 mg PO Q4H PRN PRN Reason: Heartburn Ceftriaxone Sodium (Ceftriaxone Sodium 1 Gm Vial) 1 gm IVPUSH DAILY@2100 ENOCH Enoxaparin Sodium (Enoxaparin Sodium 40 Mg/0.4 Ml Syringe) 40 mg SUBCUT Q24H [facility] Last Admin: 01/30/24 05:01 Dose: 40 mg Documented By: PAULINA Magnesium Hydroxide (Milk Of Magnesia 30 Ml Oral.Susp) 30 ml PO DAILY PRN PRN Reason: Constipation Melatonin (Melatonin 3 Mg Tablet) 6 mg PO BEDTIME PRN PRN Reason: Insomnia Ondansetron HCl (Ondansetron Hcl 4 Mg/2 Ml Vial) 4 mg IVPUSH Q8H PRN PRN Reason: Nausea and Vomiting Senna (Sennosides 8.6 Mg Tablet) 17.2 mg PO BEDTIME PRN PRN Reason: Constipation Sodium Chloride (0.9 % Sodium Chloride Flush 3 Ml Syringe) 3 ml IVFLUSH QSHIFT [facility] Last Admin: 01/30/24 07:46 Dose: 3 ml Documented By: XENIA Labs 01/30/24 04:24 01/30/24 04:24 Labs: Laboratory Results - last 24 hr 01/29/24 01/29/24 01/29/24 20:30 21:21 23:30 MCV 90.9 MCH 29.8 MCHC 32.8 RDW 16.0 Plt Count 98 L D MPV 9.7 Immature Gran % (Auto) 0.2 Neut % (Auto) 61.6 Lymph % (Auto) 23.6 [place] % (Auto) 11.2 H Eos % (Auto) 3.0 Baso % (Auto) 0.4 Lymph # (Auto) 1.2 [place] # (Auto) 0.6 Eos # (Auto) 0.2 Baso # (Auto) 0.0 Abs Immat Gran (auto) 0.01 Absolute Neuts (auto) 3.1 Absolute Nucleated RBC 0.000 Nucleated RBC % (auto) 0.0 Anion Gap 13 Estim Creat Clear Calc 76.2 Estimated GFR > 60 Random Glucose 118 H Lactic Acid 4.2 H* Lactic Acid F/U @ 2Hr 1.1 Calcium 8.4 Magnesium 1.5 L Total Bilirubin 0.4 Direct Bilirubin 0.2 AST 52 H ALT 27 Alkaline Phosphatase 154 H Total Creatine Kinase 36 Troponin I High Sens < 2.7 D Total Protein 5.6 L Albumin 2.8 L Lipase 31 Urine Color Dark Yellow Urine Appearance Cloudy Urine pH 5.5 Ur Specific [place] >= 1.030 H Urine Protein Trace Urine Glucose (UA) Negative Urine Ketones Trace Urine Blood Negative Urine Nitrite Positive H Ur Leukocyte Esterase Moderate (2+) H Urine RBC 0-2 Urine WBC 21-50 H Ur Squamous Epith Cells 3-5 Calcium Oxalate Crystal Present Urine Bacteria 4+ Hyaline Casts 11-20 Influenza Type A (PCR) NEGATIVE Influenza Type B (PCR) NEGATIVE RSV RNA Qual (PCR) NEGATIVE SARS-CoV-2 RNA (RT-PCR) NEGATIVE 01/30/24 04:24 MCV 91.7 MCH 28.9 MCHC 31.6 RDW 16.0 Plt Count 91 L MPV 10.1 Immature Gran % (Auto) 0.3 Neut % (Auto) 62.9 Lymph % (Auto) 23.5 [place] % (Auto) 9.9 Eos % (Auto) 2.9 Baso % (Auto) 0.5 Lymph # (Auto) 0.9 L [place] # (Auto) 0.4 Eos # (Auto) 0.1 Baso # (Auto) 0.0 Abs Immat Gran (auto) 0.01 Absolute Neuts (auto) 2.4 Absolute Nucleated RBC 0.000 Nucleated RBC % (auto) 0.0 Anion Gap 13 Estim Creat Clear Calc 80.1 Estimated GFR > 60 Random Glucose 95 Lactic Acid Lactic Acid F/U @ 2Hr Calcium 8.3 L Magnesium Total Bilirubin Direct Bilirubin AST ALT Alkaline Phosphatase Total Creatine Kinase Troponin I High Sens Total Protein Albumin Lipase Urine Color Urine Appearance Urine pH Ur Specific [place] Urine Protein Urine Glucose (UA) Urine Ketones Urine Blood Urine Nitrite Ur Leukocyte Esterase Urine RBC Urine WBC Ur Squamous Epith Cells Calcium Oxalate Crystal Urine Bacteria Hyaline Casts Influenza Type A (PCR) Influenza Type B (PCR) RSV RNA Qual (PCR) SARS-CoV-2 RNA (RT-PCR) Assessment and Plan (1) Acute cystitis: Status: Acute (2) Hypomagnesemia: Status: Acute (3) Acidosis, lactic: Status: Acute Plan This is a 79-year-old female with history of dementia, confused at baseline who was brought to the emergency department after mechanical fall found to have UTI UTI No white count, no fever, no evidence of sepsis Continue IV ceftriaxone Follow urine culture, blood cultures Acute lactic acidosis Likely due to metformin use. Not due to severe sepsis Resolved after IV fluid DM hold metformin on NPH u-100 at baseline - nonformulary - will hold for now and follow POCs, if elevated will convert to glargine SSI, POCs, ADA diet Thrombocytopenia Chronic, at baseline Hypomagnesemia Status post IV magnesium Check repeat level Dementia/mood Continue baseline medication Hyperlipidemia Continue statin Hypothyroidism Continue Synthroid Glaucoma Continue baseline eye drops PT evaluation - recommend short-term rehab when medically ready for discharge DVT prophylaxis-Lovenox; if platelets drop will consider stopping chemoprophylaxis Needs ongoing inpatient stay for treatment of acute cystitis with asthenia as cannot go home where she lives alone and is not able to care for self. Quality Stroke Does the patient have a stroke diagnosis?: No VTE Prior VTE?: No VTE Risk Level:: Medical - moderate - high VTE Device Contraindication: N/A - Device Ordered VTE Drug Contraindication: N/A - Med Ordered
[2024-01-30 13:26] LABS: Glucose, Whole Blood 91 mg/dL (60-115)
[2024-01-30 13:30] LABS: Magnesium 1.9 mg/dL (1.6-2.6)
[2024-01-30 16:20] LABS: Glucose, Whole Blood 112 mg/dL (60-115)
[2024-01-30 20:53] LABS: Glucose, Whole Blood 91 mg/dL (60-115)
[2024-01-30] MEDS: Brimonidine Tartrate 0.2% Oph 5 ML BOTTLE 1 DROP EYE-BOTH (22:26)
[2024-01-30] MEDS: risperiDONE 1 MG TABLET PO (22:26)
[2024-01-30] MEDS: QUEtiapine Fumarate 25 MG TABLET 75 MG PO (22:26)
[2024-01-30] MEDS: Dorzolamide/Timolo 2.23%/0.68% 10 ML DRBTL 1 DROP EYE-BOTH (22:26)
[2024-01-30] MEDS: QUEtiapine Fumarate 25 MG TABLET PO (22:26)
[2024-01-30] MEDS: Atorvastatin Calcium 20 MG TABLET PO (22:26)
[2024-01-30] MEDS: cefTRIAXone sodium 1 GM VIAL IVPUSH (22:27)
[2024-01-30] MEDS: Latanoprost 0.005 % Ophth Sol 2.5 ML DROPS 1 DROP EYE-BOTH (22:27)
[2024-01-30] MEDS: Donepezil HCl 10 MG TABLET PO (22:27)
[2024-01-31 02:51] VITALS: BP 137/74; PULSE 88; RESP 20; TEMP 36.4; O2SAT 95
[2024-01-31] MEDS: Enoxaparin Sodium 40 MG/0.4 ML SYRINGE SUBCUT (03:02)
[2024-01-31] MEDS: Levothyroxine Sodium 112 MCG TABLET PO (05:01)
[2024-01-31 06:56] VITALS: BP 150/83; PULSE 79; RESP 18; TEMP 36.7; O2SAT 95
[2024-01-31 07:17] LABS: Glucose, Whole Blood 105 mg/dL (60-115)
[2024-01-31] MEDS: Loratadine 10 MG TABLET PO (08:52)
[2024-01-31] MEDS: Venlafaxine HCl ER 150 MG CAP.ER.24H 300 MG PO (08:52)
[2024-01-31] MEDS: Gabapentin 100 MG CAPSULE 200 MG PO (08:52)
[2024-01-31] MEDS: Cholecalciferol (Vitamin D3) 25 MCG TABLET 50 MCG PO (08:52)
[2024-01-31] MEDS: Brimonidine Tartrate 0.2% Oph 5 ML BOTTLE 1 DROP EYE-BOTH ×2 (08:53→22:33)
[2024-01-31] MEDS: Ferrous Sulfate 324 MG TABLET.DR PO (08:53)
[2024-01-31] MEDS: Dorzolamide/Timolo 2.23%/0.68% 10 ML DRBTL 1 DROP EYE-BOTH ×2 (08:53→22:32)
[2024-01-31] MEDS: risperiDONE 1 MG TABLET PO ×2 (08:53→22:27)
[2024-01-31] MEDS: 0.9 % Sodium Chloride Flush 3 ML SYRINGE IVFLUSH ×3 (08:54→22:30)
[2024-01-31 10:57] LABS: Glucose, Whole Blood 109 mg/dL (60-115)
[2024-01-31 12:31] VITALS: BP 150/83; PULSE 79; O2SAT 95
--- NOTE | 2024-01-31 13:05 | P.PNIM_ITS ---
Subjective Subjective Date of Service: 01/31/24 Interval History: seen and examined this morning follow up for fall, UTI patient awake, alert, denies pain pleasantly confused Review of Systems Review of Systems: Yes all other systems are reviewed and are negative Cardiovascular Cardiovascular: Denies chest pain Physical Exam 2 Vital Signs: Vital Signs: Last Vital Signs Temp 98.1 F 01/31/24 06:56 Pulse 79 01/31/24 12:31 Resp 18 01/31/24 06:56 BP 150/83 H 01/31/24 12:31 Pulse Ox 95 01/31/24 12:31 O2 Del Method Room Air 01/31/24 06:56 BMI result Body Mass Index 36.2 Const: General: comfortable, alert and awake Nutritional Appearance: obese Orientation/consciousness: oriented to person Resp: Effort & Inspection: normal respiratory effort, able to speak in complete sentences, no respiratory distress and no use of accessory muscles Cardio: Rate: regular rate GI: Inspection: No distended Palpation (GI): Soft to palpation Skin: Other: bruising around eyes and/forehead Neuro: General: oriented to person, moves all extremities and CN's II-XI intact bilaterally Objective Data Active Medications Acetaminophen (Acetaminophen 325 Mg Tablet) 650 mg PO Q6H PRN PRN Reason: Pain, Mild (Pain Scale 1-3), fever or headache Atorvastatin Calcium (Atorvastatin Calcium 20 Mg Tablet) 20 mg PO BEDTIME [facility] Last Admin: 01/30/24 22:26 Dose: 20 mg Documented By: RANJANA Brimonidine Tartrate (Brimonidine Tartrate 0.2% Oph 5 Ml Bottle) 1 drop EYE- BOTH BID [facility] Last Admin: 01/31/24 08:53 Dose: 1 drop Documented By: FREIDA Calcium Carbonate (Calcium Carbonate 750 Mg Tab.Chew) 750 mg PO Q4H PRN PRN Reason: Heartburn Ceftriaxone Sodium (Ceftriaxone Sodium 1 Gm Vial) 1 gm IVPUSH DAILY@2100 [facility] Last Admin: 01/30/24 22:27 Dose: 1 gm Documented By: RANJANA Donepezil HCl (Donepezil Hcl 10 Mg Tablet) 10 mg PO BEDTIME [facility] Last Admin: 01/30/24 22:27 Dose: 10 mg Documented By: RANJANA Dorzolamide/Timolol (Dorzolamide/Timolo 2.23%/0.68% 10 Ml Drbtl) 1 drop EYE- BOTH BID [facility] Last Admin: 01/31/24 08:53 Dose: 1 drop Documented By: FREIDA Enoxaparin Sodium (Enoxaparin Sodium 40 Mg/0.4 Ml Syringe) 40 mg SUBCUT Q24H [facility] Last Admin: 01/31/24 03:02 Dose: 40 mg Documented By: RANJANA Ferrous Sulfate (Ferrous Sulfate 324 Mg Tablet.Dr) 324 mg PO DAILY [facility] Last Admin: 01/31/24 08:53 Dose: 324 mg Documented By: FREIDA Fluticasone Propionate (Fluticasone Propionate Nasal 16 Gm [place]) 1 spray NOSTRIL-B DAILY PRN PRN Reason: allergies Gabapentin (Gabapentin 100 Mg Capsule) 200 mg PO DAILY [facility] Last Admin: 01/31/24 08:52 Dose: 200 mg Documented By: FREIDA Glucose (Glucose Gel 15 Gm Gel..Gram.) 15 gm PO Q15M PRN; Protocol PRN Reason: per Hypoglycemia Standing Ord. Dextrose (D10) 250 mls @ 750 mls/hr IV Q15M PRN; Protocol PRN Reason: per Hypoglycemia Standing Ord. Insulin Human Lispro (Insulin Lispro 100 Unit/Ml 3 Ml Vial) 0 unit SUBCUT QIDACHS [facility]; Protocol Last Admin: 01/31/24 11:37 Dose: Not Given Documented By: FREIDA Non-Admin Reason: No Insulin Coverage Latanoprost (Latanoprost 0.005 % Ophth [place] 2.5 Ml Drops) 1 drop EYE-BOTH BEDTIME [facility] Last Admin: 01/30/24 22:27 Dose: 1 drop Documented By: RANJANA Levothyroxine Sodium (Levothyroxine Sodium 112 Mcg Tablet) 112 mcg PO DAILY@0600 [facility] Last Admin: 01/31/24 05:01 Dose: 112 mcg Documented By: RANJANA Loratadine (Loratadine 10 Mg Tablet) 10 mg PO DAILY [facility] Last Admin: 01/31/24 08:52 Dose: 10 mg Documented By: FREIDA Magnesium Hydroxide (Milk Of Magnesia 30 Ml Oral.Susp) 30 ml PO DAILY PRN PRN Reason: Constipation Melatonin (Melatonin 3 Mg Tablet) 6 mg PO BEDTIME PRN PRN Reason: Insomnia Non-Formulary Medication (Netarsudil [Rhopressa]) 1 drop EYE-BOTH BEDTIME [facility] Ondansetron HCl (Ondansetron Hcl 4 Mg/2 Ml Vial) 4 mg IVPUSH Q8H PRN PRN Reason: Nausea and Vomiting Quetiapine Fumarate (Quetiapine Fumarate 25 Mg Tablet) 25 mg PO BEDTIME [facility] Last Admin: 01/30/24 22:26 Dose: 25 mg Documented By: RANJANA Quetiapine Fumarate (Quetiapine Fumarate 25 Mg Tablet) 75 mg PO BEDTIME [facility] Last Admin: 01/30/24 22:26 Dose: 75 mg Documented By: RANJANA Risperidone (Risperidone 1 Mg Tablet) 1 mg PO BID [facility] Last Admin: 01/31/24 08:53 Dose: 1 mg Documented By: FREIDA Senna (Sennosides 8.6 Mg Tablet) 17.2 mg PO BEDTIME PRN PRN Reason: Constipation Sodium Chloride (0.9 % Sodium Chloride Flush 3 Ml Syringe) 3 ml IVFLUSH QSHIFT [facility] Last Admin: 01/31/24 08:54 Dose: 3 ml Documented By: FREIDA Venlafaxine HCl (Venlafaxine Hcl Er 150 Mg Cap.Er.24h) 300 mg PO DAILY [facility] Last Admin: 01/31/24 08:52 Dose: 300 mg Documented By: FREIDA Vitamin D (Cholecalciferol (Vitamin D3) 25 Mcg Tablet) 50 mcg PO DAILY [facility] Last Admin: 01/31/24 08:52 Dose: 50 mcg Documented By: FREIDA Labs 01/30/24 04:24 01/30/24 04:24 Labs: Laboratory Results - last 24 hr 01/30/24 01/30/24 01/30/24 04:24 13:22 16:11 POC Glucose 91 112 Magnesium 1.9 01/30/24 01/31/24 01/31/24 20:47 07:10 10:49 POC Glucose 91 105 109 Magnesium Microbiology Microbiology Results: Microbiology 01/29/24 21:01 Urine Culture - Preliminary Urine Catheterized - Redd Catheter Gram negative gretchen 01/29/24 21:20 Blood Culture - Preliminary Blood - Venous No growth after 24 hours. 01/29/24 21:21 Blood Culture - Preliminary Blood - Venous No growth after 24 hours. Assessment and Plan (1) Dementia, senile: Status: Acute (2) Acute UTI: Status: Acute Plan This is a 79-year-old female with history of dementia, confused at baseline who was brought to the emergency department after mechanical fall found to have UTI UTI No white count, no fever, no evidence of sepsis Continue IV ceftriaxone urine culture growing GNR, follow final results blood cultures with no growth to date Acute lactic acidosis Likely due to metformin use. Not due to severe sepsis Resolved after IV fluid DM hold metformin on NPH u-100 at baseline - nonformulary - will hold for now and follow POCs, if elevated will convert to glargine POCs normal - check Hba1c SSI, POCs, ADA diet Thrombocytopenia Chronic, at baseline Hypomagnesemia Status post IV magnesium Check repeat level Dementia/mood Continue baseline medication Hyperlipidemia Continue statin Hypothyroidism Continue Synthroid Glaucoma Continue baseline eye drops PT evaluation - recommend short-term rehab when medically ready for discharge DVT prophylaxis-Lovenox; if platelets drop will consider stopping chemoprophylaxis Needs ongoing inpatient stay for treatment of acute cystitis with asthenia as cannot go home where she lives alone and is not able to care for self Quality Stroke Does the patient have a stroke diagnosis?: No VTE Prior VTE?: No VTE Risk Level:: Medical - moderate - high VTE Device Contraindication: N/A - Device Ordered VTE Drug Contraindication: N/A - Med Ordered
[2024-01-31 13:32] LABS: Estimated Average Glucose 100 mg/dL; Hemoglobin A1c % 5.1 % (<6.0); Total Hemoglobin (HGBA1C) 3002.4626 umol/L
--- NOTE | 2024-01-31 14:45 | MHC.CM.PN ---
EMR reviewed and per MD rounds, pt is not medically cleared for discharge due to management of acute cystitis with asthenia.
[2024-01-31 15:31] VITALS: BP 133/88; PULSE 98; RESP 16; TEMP 36.4; O2SAT 94
[2024-01-31 15:57] LABS: Glucose, Whole Blood 99 mg/dL (60-115)
[2024-01-31 19:17] VITALS: BP 121/73; PULSE 84; RESP 17; TEMP 36.6; O2SAT 97
[2024-01-31 20:23] LABS: Glucose, Whole Blood 123 mg/dL (60-115)
[2024-01-31] MEDS: Atorvastatin Calcium 20 MG TABLET PO (22:27)
[2024-01-31] MEDS: Donepezil HCl 10 MG TABLET PO (22:27)
[2024-01-31] MEDS: QUEtiapine Fumarate 25 MG TABLET PO (22:28)
[2024-01-31] MEDS: Latanoprost 0.005 % Ophth Sol 2.5 ML DROPS 1 DROP EYE-BOTH (22:28)
[2024-01-31] MEDS: QUEtiapine Fumarate 25 MG TABLET 75 MG PO (22:28)
[2024-01-31] MEDS: cefTRIAXone sodium 1 GM VIAL IVPUSH (22:29)
[2024-01-31 23:39] VITALS: BP 92/56; PULSE 74; RESP 17; TEMP 36.4; O2SAT 92
[2024-02-01 03:29] VITALS: BP 95/62; PULSE 66; RESP 17; TEMP 36.3; O2SAT 94
[2024-02-01] MEDS: Enoxaparin Sodium 40 MG/0.4 ML SYRINGE SUBCUT (03:31)
[2024-02-01] MEDS: Levothyroxine Sodium 112 MCG TABLET PO (05:16)
[2024-02-01 07:22] LABS: Glucose, Whole Blood 100 mg/dL (60-115)
[2024-02-01 07:47] VITALS: BP 135/75; PULSE 67; RESP 20; TEMP 36.5; O2SAT 95
[2024-02-01] MEDS: Cholecalciferol (Vitamin D3) 25 MCG TABLET 50 MCG PO (10:40)
[2024-02-01] MEDS: Ferrous Sulfate 324 MG TABLET.DR PO (10:40)
[2024-02-01] MEDS: Gabapentin 100 MG CAPSULE 200 MG PO (10:40)
[2024-02-01] MEDS: 0.9 % Sodium Chloride Flush 3 ML SYRINGE IVFLUSH (10:40)
[2024-02-01] MEDS: Venlafaxine HCl ER 150 MG CAP.ER.24H 300 MG PO (10:41)
[2024-02-01] MEDS: Loratadine 10 MG TABLET PO (10:41)
[2024-02-01] MEDS: risperiDONE 1 MG TABLET PO (10:41)
[2024-02-01] MEDS: Dorzolamide/Timolo 2.23%/0.68% 10 ML DRBTL 1 DROP EYE-BOTH (10:51)
[2024-02-01] MEDS: Brimonidine Tartrate 0.2% Oph 5 ML BOTTLE 1 DROP EYE-BOTH (10:52)
[2024-02-01 11:04] LABS: Glucose, Whole Blood 96 mg/dL (60-115)
--- NOTE | 2024-02-01 12:07 | MHC.CM.PN ---
Addendum entered by Johana Cruz 02/01/24 12:13: PER LORETO AT [facility], PTS DAUGHTER WILL BE HERE TO TRANSPORT PT AROUND 1500 HOURS Original Note: PER HOSPITALIST, PT READY TO DC TODAY PT AND FAMILY DECLINING STR PT WILL DC HOME WITH RESUMPTION OF TWICE DAILY [employer], A 4 DAY PER WEEK DAY PROGRAM AND FAMILY SUPPORT CM SPOKE TO PTS /HCP, KATHY [phone] WHO SAID HE WOULD BE HOME TO RECEIVE PT WHO USUALLY TRANSPORTS BLS CM THEN SPOKE TO MO [phone] AT [facility] WHO INDICATED SHE WOULD CONTACT THE PTS DAUGHTER TO ENSURE SHE WAS ALSO AWARE OF DC AND REQUEST THAT SHE TRANSPORT THE PT CM AWAITING RETURN CALL
--- NOTE | 2024-02-01 14:51 | P.DS_ITS ---
DS: Providers Provider Date of Service: 02/01/24 Date of admission: 01/30/24 02:47 Date of discharge: 02/01/24 Primary care physician: Unknown Physician DS: Diagnosis Discharge Diagnosis (1) Dementia, senile: Status: Acute (2) Acute UTI: Status: Acute DS: Summary Hospital Course Hospital Course: History and physical as per admitting provider. 79 year old legally blind white female with history of hyperlipidemia, type 2 diabetes mellitus (on insulin), Glaucoma, hypothyroidism, dementia (confused at baseline), who presents to the emergency room from home whre she lives alone for evaluation following a fall. She was using her walker to ambulate yesterday when she fell face first over the walker striking her forehead and sustaining a large abrasion on the forehead and now has a headache and bilateral shoulder pain. She did not loose consciousness and a head CT done in the ED did not show any acute intracranial pathology. Her family also reported that of late, she has been increasing weak and has required more assistance at home and that this usually happens when she has a urinary tract infection. In fact, work up today had findings concerning for a UTI with her urine revealing cloudy urine with that was positive for nitrites and had 2+ leukocyte esterase and 21-50 WBC/hpf with 4+ bacteria. An assessment of asthenia due to UTI was made and she was started on IV Ceftriaxone and admission requested. She otherwise has no other complains at this time. 79-year-old woman treated for Klebsiella UTI with no evidence of sepsis. Initially treated with IV Rocephin, home with 5 more days of cefuroxime. Blood cultures negative to date. She was noted to have acute lactic acidosis which was likely secondary to metformin, resolved after IV fluids. Patient should complete her dose of antibiotics and follow up with the primary care provider as needed. Diabetes mellitus type 2. Continue metformin and follow blood sugars Thrombocytopenia. Chronic, baseline. Hypomagnesemia. Status post IV magnesium. Dementia. Continue baseline medications Hyperlipidemia. Continue statin Hypothyroidism. Continue levothyroxine Glaucoma Continue baseline eyedrops Physical therapy recommended short-term rehab however family wants to take her home. Time Attestation Discharge Coordination Time (in mins): 40 Quality: Safe Use of Opioids Does Pt have an Active Cancer Diagnosis on the Problem List?: No Quality: Stroke Does the patient have a stroke diagnosis?: No Physical Exam Vital Signs: Vital Signs: Last Vital Signs Temp 97.7 F 02/01/24 07:47 Pulse 67 02/01/24 07:47 Resp 20 02/01/24 07:47 BP 135/75 02/01/24 07:47 Pulse Ox 95 02/01/24 07:47 O2 Del Method Room Air 02/01/24 07:47 BMI result Body Mass Index 36.2 Appearing in no acute distress head is normocephalic atraumatic eyes pupils are PERRLA sclera is anicteric mouth throat mucous membranes are intact and moist neck is supple no lymphadenopathy, no JVD noted lung sounds are clear to auscultation heart regular rate rhythm, clear S1, S2 positive bowel sounds, abdomen is soft, nontender neuro patient is alert x3, no focal deficits Ecchymosis to face DS: Data Data Completed and Pending Labs on day of discharge: Laboratory Results - last 24 hr 01/31/24 01/31/24 02/01/24 15:37 20:19 07:19 POC Glucose 99 123 H 100 02/01/24 10:59 POC Glucose 96 Preliminary micro results at discharge 01/29/24 21:20 Blood Culture - Preliminary Blood - Venous No growth after 48 hours. 01/29/24 21:21 Blood Culture - Preliminary Blood - Venous No growth after 48 hours. Discharge Plan Discharge Anticipated Discharge Date/Time: 02/01/24 12:26 Patient Disposition: Home Health Service Discharge Diagnosis: Fall Facial ecchymosis UTI Discharge Medications: New cefuroxime axetil 500 mg tablet 500 mg PO BID Qty: 10 0RF Continued latanoprost 0.005 % Drops 1 drp OPHTHALMIC (EYE) BEDTIME Rx Instructions: both eyes metformin 500 mg Tablet 500 mg PO BID donepezil 10 mg Tablet 10 mg PO BEDTIME venlafaxine 150 mg Capsule,Extended Release 24hr 300 mg PO DAILY brimonidine 0.2 % Drops 1 drp OPHTHALMIC (EYE) BID Rx Instructions: administer approximately 8 hours apart dorzolamide-timolol 22.3-6.8 mg/mL Drops 1 drp OPHTHALMIC (EYE) BID Rx Instructions: both eyes fluticasone propionate 50 mcg/actuation [place],Suspension 1 spray INTRANASAL DAILY PRN (Reason: allergies) Rx Instructions: administer into each nostril risperidone 1 mg Tablet 1 mg PO BID quetiapine 150 mg Tablet Extended Release 24 Hr 150 mg PO BEDTIME quetiapine 25 mg Tablet 25 mg PO BEDTIME simvastatin 40 mg Tablet 40 mg PO BEDTIME ferrous sulfate 325 mg (65 mg iron) Tablet 325 mg PO DAILY Humulin N NPH U-100 Insulin 100 unit/mL Suspension 34 unit SUBCUT DAILY levothyroxine 112 mcg Tablet 112 mcg PO DAILY@0600 cholecalciferol (vitamin D3) [Vitamin D3] 50 mcg (2,000 unit) Tablet 50 mcg PO DAILY cetirizine 10 mg Tablet 10 mg PO DAILY gabapentin 100 mg capsule 200 mg PO DAILY Rhopressa 0.02 % Drops 1 drp OPHTHALMIC (EYE) BEDTIME Discharge Orders: Discharge Order (Routine); Ordered 02/01/24 Ordered By: Wilma Geronimo Diet: Advance to usual diet Activity on Discharge: As tolerated Stand Alone Forms: Patient Portal Discharge page Print Language: Niuean Care Plan Goals: May use ice for facial swelling. Tylenol for pain. Complete antibiotic course Health Concerns: Fall Facial ecchymosis UTI Plan of Treatment: Follow-up with primary care provider as needed Take all medications as prescribed Assessment: See discharge summary Discharge Date/Time: 02/01/24 15:10
== END 2024-02-01 15:10 | disposition home health service (06) | DRG 690 ==
LOC: HO.ED 01-30 02:06 → HO.EDOVER 01-30 03:47 → HO.IMC 01-30 13:28
PROVIDERS: Physician Assistant Medical; Admitting Provider Internal Medicine; Emergency Provider Emergency Medicine; PCP Nurse Practitioner Family; Visit Provider Nurse Practitioner Acute Care
DX: N30.00 Acute cystitis without hematuria (principal); E87.21 Acute metabolic acidosis; F03.90 Unspecified dementia, unspecified severity, without behavioral disturbance, psychotic disturbance, mood disturbance, and anxiety; E03.9 Hypothyroidism, unspecified; E83.42 Hypomagnesemia; H40.9 Unspecified glaucoma; S00.83XA Contusion of other part of head, initial encounter; D69.6 Thrombocytopenia, unspecified; E86.0 Dehydration; B96.1 Klebsiella pneumoniae [K. pneumoniae] as the cause of diseases classified elsewhere; R53.1 Weakness; E11.9 Type 2 diabetes mellitus without complications; E78.5 Hyperlipidemia, unspecified; H54.8 Legal blindness, as defined in USA; W19.XXXA Unspecified fall, initial encounter; Z20.822 Contact with and (suspected) exposure to COVID-19; Z79.4 Long term (current) use of insulin; Z79.84 Long term (current) use of oral hypoglycemic drugs; Z79.899 Other long term (current) drug therapy
CPT/HCPCS: 0241U; 36415; 70450; 71045; 72125; 73030; 74176; 80048; 80076; 81001; 82550; 82947; 83036; 83605; 83690; 83735; 84484; 85025; 87040; 87086; 87088; 87186; 93005; 97162; 97530; 99285; J0696; J1650; J3475

== ENCOUNTER → 2024-01-29 19:56 | Outpatient (BNV) | payer MEDICARE, MEDICAID, SELFPAY | PROVIDERS: Admitting Provider Internal Medicine; Emergency Provider Emergency Medicine; Visit Provider Internal Medicine Cardiovascular Disease | DX: I49.3 Ventricular premature depolarization (principal) | CPT/HCPCS: 93010 ==

== ENCOUNTER → 2024-01-30 02:47 | Outpatient (BNV) | payer MEDICARE, MEDICAID, SELFPAY | PROVIDERS: Admitting Provider Internal Medicine; Emergency Provider Emergency Medicine; Visit Provider Internal Medicine | DX: F03.90 Unspecified dementia, unspecified severity, without behavioral disturbance, psychotic disturbance, mood disturbance, and anxiety (principal); N39.0 Urinary tract infection, site not specified | CPT/HCPCS: 99223; 99232; 99499 ==